=== PATIENT | female | born 1940 | race Hispanic/Latino ===

== ENCOUNTER 2019-03-21 14:45 | Observation (INO) | payer MEDICARE ==
[~2019-03-21] VITALS: Ht 144.8 cm; Wt 104.7 kg
[2019-03-21] MEDS: MELOXICAM 7.5 MG TAB PO SCH (09:00)
--- OUTSIDE RECORDS SUMMARY | 2019-03-21 14:47 | XMS REPORT | Clinical Summary ---
Author Author [facility] Organization [facility] Address Unknown Phone Unavailable Care Team Providers Care Dust Sampler Name Role Phone Aicha Benjamin PCP Allergies No Known Allergies Medications End Date Status Medication Sig Dispensed Refills Start Date Active meloxicam (MOBIC) 15 mg Take 1 tab 30 tablet 1 tabletIndications: Acute daily with 9 pain of right knee, Pain food for knee in both feet & feet pain Active triamcinolone (KENALOG) Apply to 30 g 0 0.5 % affected area 9 ointmentIndications: two times a Dermatitis day for 2 weeks 01/14/2020 Active lisinopril Take 1 tablet 90 tablet 1 (PRINIVIL,ZESTRIL) 10 mg (10 mg total) 9 tabletIndications: by mouth Essential hypertension daily. 02/28/2020 Active montelukast (SINGULAIR) Take 1 tablet 30 tablet 3 10 mg tabletIndications: (10 mg total) 9 Nasal congestion, Chronic by mouth cough nightly. Active fluticasone propionate 2 sprays (100 15.8 mL 0 (FLONASE) 50 mcg total) by 9 mcg/actuation nasal Each Nare sprayIndications: Nasal route daily. congestion, Chronic cough 02/28/2020 Active albuterol (PROAIR Inhale 2 18 g 0 HFA,PROVENTIL puffs 2 (two) 9 HFA,VENTOLIN HFA) 90 times a day mcg/actuation inhaler as needed for wheezing or shortness of breath. 01/14/2019 Discontinued lisinopril Take 1 tablet 60 tablet 5 (PRINIVIL,ZESTRIL) 10 mg (10 mg total) 6 tabletIndications: by mouth Essential hypertension daily. 04/11/2018 atorvastatin (LIPITOR) 10 Take 1 tablet 90 tablet 0 MG tabletIndications: (10 mg total) 7 Kidney function abnormal, by mouth Hypercholesteremia daily. 01/24/2019 amoxicillin-pot Take 1 tablet 20 tablet 0 clavulanate (AUGMENTIN) by mouth 2 9 875-125 mg per (two) times a tabletIndications: Acute day for 10 recurrent maxillary days. sinusitis 02/28/2019 Discontinued azelastine (ASTELIN) 137 1 spray into 30 mL 3 mcg (0.1 %) nasal each nostril 9 sprayIndications: Acute 2 (two) times recurrent maxillary a day. Use in sinusitis, Nasal each nostril congestion as directed 03/10/2019 nitrofurantoin, Take 1 14 capsule 0 macrocrystal-monohydrate, capsule (100 9 (MACROBID) 100 MG capsule mg total) by mouth 2 (two) times a day for 7 days. Active Problems Problem Noted Date Chronic cough 02/28/2019 Medicare annual wellness visit, subsequent 02/28/2019 Screening for breast cancer 02/28/2019 Screening for colon cancer 02/28/2019 Acute maxillary sinusitis 01/14/2019 Urinary frequency 01/14/2019 Nasal congestion 01/14/2019 CKD (chronic kidney disease), stage III 01/14/2019 Post-nasal drip 08/22/2016 Essential hypertension 08/22/2016 Memory change 07/11/2016 Encounters Care Team Description Date Type Specialty Aicha Benjamin DO 03/21/2019 Telephone Internal Medicine Aicha Benjamin DO 03/05/2019 Telephone Internal Medicine Aicha Benjamin DO 03/03/2019 Orders Only Family Medicine Aicha Benjamin DO Screening for colon cancer; Chronic cough; Medicare annual wellness visit, subsequent; Essential hypertension; Urinary frequency; CKD (chronic kidney disease), stage III (HCC) 02/28/2019 Lab Lab Aicha Benjamin DO Medicare annual wellness visit, subsequent (Primary Dx); Nasal congestion; Chronic cough; Screening for breast cancer; Screening for colon cancer; Essential hypertension; Urinary frequency; CKD (chronic kidney disease), stage III (HCC); Urinary incontinence, unspecified type 02/28/2019 Office Visit Family Medicine Aicha Benjamin DO 02/28/2019 Orders Only Family Medicine Markus Moore Screening for colon cancer (Primary Dx); Medicare annual wellness visit, subsequent 02/28/2019 Orders Only Family Medicine Aicha Benjamin DO Acute recurrent maxillary sinusitis; Essential hypertension 01/14/2019 Lab Lab Aicha Benjamin DO Acute recurrent maxillary sinusitis (Primary Dx); Essential hypertension; Urinary frequency; Nasal congestion; CKD (chronic kidney disease), stage III (HCC) 01/14/2019 Office Visit Family Medicine Beryl Martinez, RUBY 01/14/2019 Telephone Family Medicine Susana Espinoza MD Acute pain of right knee (Primary Dx); Pain in both feet; Dermatitis 12/12/2018 Office Visit Family Medicine after 03/20/2018 Immunizations Name Dates Previously Given Next Due Influenza Trivalent 06/13/2018, 07/14/2016 Zoster 06/13/2016 Family History Medical History Relation Name Comments Heart attack Father Diabetes Mother Relation Name Status Comments Father Mother Social History Date Tobacco Use Types Packs/Day Years Used Never Smoker Smokeless Tobacco: Never Used Tobacco Cessation: Counseling Given: No Alcohol Use Drinks/Week oz/Week Comments No Sex Assigned at Date Recorded Not on file Industry Job Start Date Occupation Not on file Not on file Not on file Travel End Travel History Travel Start No recent travel history available. Last Filed Vital Signs Time Taken Vital Sign Reading 02/28/2019 2:32 PM CDT Blood Pressure 142/74 02/28/2019 2:32 PM CDT Pulse 70 01/14/2019 1:17 PM CDT Temperature 36.5 C (97.7 F) - Respiratory Rate - 02/28/2019 2:32 PM CDT Oxygen Saturation 98% - Inhaled Oxygen - Concentration 02/28/2019 2:32 PM CDT Weight 102 kg (225 lb) 02/28/2019 2:32 PM CDT Height 144.8 cm (4' 9") 02/28/2019 2:32 PM CDT Body Mass Index 48.69 Plan of Treatment Care Team Description Date Type Specialty Aicha Benjamin DO [address] [address] [phone] 04/09/2019 Office Visit Family Medicine Aicha Benjamin DO [address] [facility] [address] [place], [place] [address] Lena Mercado MD [address] [facility] [address] [place] [address] 04/11/2019 Office Visit Urology Health Maintenance Due Date Last Done Comments COLONOSCOPY SCREENING 1992 SHINGLES VACCINES (#1) 1992 65+ PNEUMOCOCCAL VACCINE 12/12/2007 (1 of 2 - PCV13) INFLUENZA VACCINE 04/04/2019 06/13/2018, 07/14/2016, 05/14/2016 Procedures Comments Procedure Name Priority Date/Time Associated Diagnosis XR CHEST 2 VW Routine 02/28/2019 Chronic cough 4:37 PM CDT URINALYSIS, AUTOMATED Routine 02/28/2019 Medicare annual wellness WITH MICROSCOPY 3:55 PM CDT visit, subsequent Essential hypertension Urinary frequency CKD (chronic kidney disease), stage III (HCC) COMPREHENSIVE METABOLIC Routine 02/28/2019 Chronic cough PANEL 3:55 PM CDT Medicare annual wellness visit, subsequent Essential hypertension Urinary frequency CKD (chronic kidney disease), stage III (HCC) CBC WITH PLATELET AND Routine 02/28/2019 Chronic cough DIFFERENTIAL 3:55 PM CDT Medicare annual wellness visit, subsequent Essential hypertension Urinary frequency CKD (chronic kidney disease), stage III (HCC) URINE CULTURE Routine 02/28/2019 Medicare annual wellness 3:55 PM CDT visit, subsequent Essential hypertension Urinary frequency CKD (chronic kidney disease), stage III (HCC) URINALYSIS, AUTOMATED Routine 01/14/2019 Acute recurrent maxillary WITH MICROSCOPY 2:07 PM CDT sinusitis Essential hypertension LIPID PANEL Routine 01/14/2019 Acute recurrent maxillary 2:07 PM CDT sinusitis Essential hypertension COMPREHENSIVE METABOLIC Routine 01/14/2019 Acute recurrent maxillary PANEL 2:07 PM CDT sinusitis Essential hypertension CBC WITH PLATELET AND Routine 01/14/2019 Acute recurrent maxillary DIFFERENTIAL 2:07 PM CDT sinusitis Essential hypertension XR KNEE 4+ VW RIGHT Routine 12/12/2018 Acute pain of right knee 11:53 AM CDT after 03/20/2018 Results * XR Chest 2 Vw (02/28/2019 4:37 PM CDT) Specimen Narrative Performed At EXAMINATION:XR CHEST 2 VW [facility] CLINICAL HISTORY:R05 Cough, Chronic cough of 3 months COMPARISON:None IMPRESSION: Heart size is within the upper limits of normal.Pulmonary vessels are in the normal range.There is patchy atelectasis at the right lung base medially.Lung quiles are otherwise clear. [id number] Procedure Note Hm Interface, Radiology Results Incoming - 02/28/2019 4:47 PM CDT EXAMINATION: XR CHEST 2 VW CLINICAL HISTORY: R05 Cough, Chronic cough of 3 months COMPARISON: None IMPRESSION: Heart size is within the upper limits of normal. Pulmonary vessels are in the normal range. There is patchy atelectasis at the right lung base medially. Lung quiles are otherwise clear. [facility]-[id number] Performing Organization Address City/State/Zipcode Phone Number [facility] [address] [place] [address] * Urinalysis, automated with microscopy (02/28/2019 3:55 PM CDT) Only the most recent of 2 results within the time period is included. Color, UA YELLOW YELLOW [facility] [place] Appearance CLEAR CLEAR [facility] [place] Specific 1.014 1.001 - 1.035 [facility] gravity, urine [facility] [place] pH, urine 5.5 5.0 - 8.0 [facility] [place] Glucose, urine NEGATIVE NEGATIVE [facility] [place] Bilirubin, UA NEGATIVE NEGATIVE [facility] [place] Ketones, UA NEGATIVE NEGATIVE [facility] [place] Occult blood, NEGATIVE NEGATIVE [facility] [place] Protein, UA 1+ (A) NEGATIVE [facility] [place] Nitrite, UA NEGATIVE NEGATIVE [facility] [place] Leukocyte 2+ (A) NEGATIVE [facility] esterase, UA [facility] [place] WBC, UA > OR=60 (A) < OR=5 /HPF [facility] [place] RBC, UA NONE SEEN < OR=2 /HPF [facility] [place] Squamous NONE SEEN < OR=5 /HPF [facility] epithelial [facility]AGNOSTICS cells, UA [place] Bacteria, UA NONE SEEN NONE SEEN /HPF [facility] [place] Hyaline casts, NONE SEEN NONE SEEN /LPF [facility] UA [facility] [place] Specimen Urine Resulting Agency Comment Performing Organization Information: Site ID: [id number] Name: [facility] Address: [address] [place] [id number] Director: Stephanie Sellers Performing Organization Address City/State/Zipcode Phone Number [facility] [place] [address] [place] [phone] * CBC with platelet and differential (02/28/2019 3:55 PM CDT) Only the most recent of 2 results within the time period is included. WBC 9.0 3.8 - 10.8 [facility] Thousand/uL [facility] [place] RBC 4.30 3.80 - 5.10 [facility] Million/uL [facility] [place] HGB 11.5 (L) 11.7 - 15.5 g/dL [facility] HCT 36.1 35.0 - 45.0 % [facility] MCV 84.0 80.0 - 100.0 fL [facility] [place] MCH 26.7 (L) 27.0 - 33.0 pg [facility] [place] MCHC 31.9 (L) 32.0 - 36.0 g/dL [facility] [place] RDW 14.0 11.0 - 15.0 % [facility] [place] Platelet count 319 140 - 400 [facility] Thousand/uL [facility] [place] MPV 11.8 7.5 - 12.5 fL [facility] [place] Neutrophils, 5,553 1,500 - 7,800 [facility] absolute cells/uL [facility] [place] Lymphocytes, 2,538 850 - 3,900 cells/uL [facility] absolute [facility] [place] Monocytes, 648 200 - 950 cells/uL [facility] [place] Eosinophils, 198 15 - 500 cells/uL [facility] [place] Basophils, 63 0 - 200 cells/uL [facility] [place] Neutrophils 61.7 % [facility] [employer] [place] Lymphocytes 28.2 % [facility] [place] Monocytes 7.2 % [facility] [place] Eosinophils 2.2 % [facility] [employer] [place] Basophils + RC 0.7 % [facility] [employer] [place] Specimen Blood Resulting Agency Comment Performing Organization Information: Site ID: [id number] Name: [facility] Address: [address] [place] [id number] Director: Stephanie Sellers Performing Organization Address City/State/Zipcode Phone Number [facility] [place] [address] [place] [phone] * Urine culture (02/28/2019 3:55 PM CDT) Urine culture SEE NOTE (A) [facility] Comment: DIAGNOSTICS CULTURE, URINE, ROUTINE [place] MICRO NUMBER:[id number] TEST STATUS: FINAL SPECIMEN SOURCE: URINE SPECIMEN QUALITY:ADEQUATE RESULT: Greater than 100,000 CFU/mL of Escherichia coli COMMENT: Additional organism(s) less than 10,000 CFU/mL isolated. These organisms, commonly found on external and internal genitalia, are considered colonizers. No further testing performed. E.coli -------- -------- INT EKTA AMOX/CLAVULANATE S 4 AMPICILLIN R >=32 AMP/SULBACTAM I 16 CEFAZOLIN NR<=4 2 CEFEPIME S <=1 CEFTRIAXONE S <=1 CIPROFLOXACIN S <=0.25 GENTAMICIN S <=1 IMIPENEM S <=0.25 LEVOFLOXACIN S <=0.12 NITROFURANTOIN S <=16 PIP/TAZOBACTAM S <=4 TOBRAMYCIN S <=1 TRIMETHOPRIM/SULFA S <=20 S=SusceptibleI=Intermediat eR=Resistant*=Not Tested NR=Not ReportedNN=See Therapy Comments THERAPY COMMENTS Note 1: For infections other than uncomplicated UTI caused by E. coli, K. pneumoniae or P. mirabilis: Cefazolin is resistant if EKTA > or=8 mcg/mL. (Distinguishing susceptible versus intermediate for isolates with EKTA < or=4 mcg/mL requires additional testing.) Note 2: For uncomplicated UTI caused by E. coli, K. pneumoniae or P. mirabilis: Cefazolin is susceptible if EKTA <32 mcg/mL and predicts susceptible to the oral agents cefaclor, cefdinir, cefpodoxime, cefprozil, cefuroxime, cephalexin and loracarbef. Specimen Urine Resulting Agency Comment Performing Organization Information: Site ID: [id number] Name: [facility] Address: [address] [place] [id number] Director: Stephanie Sellers Performing Organization Address City/State/Zipcode Phone Number [facility] [employer] [address] [address] * Comprehensive metabolic panel (02/28/2019 3:55 PM CDT) Only the most recent of 2 results within the time period is included. [facility] Glucose 106 (H) 65 - 99 mg/dL [facility] Comment: DIAGNOSTICS Fasting [place] reference interval For someone without known diabetes, a glucose value between 100 and 125 mg/dL is consistent with prediabetes and should be confirmed with a follow-up test. BUN, whole 27 (H) 7 - 25 mg/dL [facility] blood [facility] [place] Creatinine 1.24 (H) 0.60 - 0.93 mg/dL [facility] Comment: DIAGNOSTICS For patients >49 years of age, [place] the reference limit for Creatinine is approximately 13% higher for people identified as -Moroccan. EGFR Non-Afr. 42 (L) > OR=60 [facility] [place] mL/min/1.73m2 [facility] [place] EGFR 49 (L) > OR=60 [facility] [place] mL/min/1.73m2 [facility] [place] BUN/creatinine 22 6 - 22 (calc) [facility] ratio [facility] [place] Sodium 140 135 - 146 mmol/L [facility] [place] Potassium 5.1 3.5 - 5.3 mmol/L [facility] [place] Chloride 107 98 - 110 mmol/L [facility] [place] CO2 25 20 - 32 mmol/L [facility] [place] Calcium 9.4 8.6 - 10.4 mg/dL [facility] [place] Protein 7.3 6.1 - 8.1 g/dL [facility] [place] Albumin, S 3.8 3.6 - 5.1 g/dL [facility] [place] Globulin, total 3.5 1.9 - 3.7 g/dL [facility] (calc) [facility] [place] Albumin/globuli 1.1 1.0 - 2.5 (calc) [facility] n ratio [facility] [place] Total bilirubin 0.4 0.2 - 1.2 mg/dL [facility] [place] Alkaline 84 33 - 130 U/L [facility] phosphatase [facility] [place] AST 14 10 - 35 U/L [facility] [place] ALT 14 6 - 29 U/L [facility] [place] Specimen Blood Resulting Agency Comment Performing Organization Information: Site ID: [id number] Name: [facility] Address: [address] [place] [phone] Director: Stephanie Sellers Performing Organization Address City/State/Zipcode Phone Number [facility] [employer] [address] [phone] * Lipid panel (01/14/2019 2:07 PM CDT) [facility] Cholesterol, 181 <200 mg/dL [facility] total [facility] [place] HDL cholesterol 61 >50 mg/dL [facility] [place] Triglycerides 110 <150 mg/dL [facility] [place] LDL cholesterol 99 mg/dL (calc) [facility] calculated Comment: DIAGNOSTICS Reference range: <100 [place] Desirable range <100 mg/dL for primary prevention; <70 mg/dL for patients with CHD or diabetic patients with > or=2 CHD risk factors. LDL-C is now calculated using the Jackie calculation, which is a validated novel method providing better accuracy than the Friedewald equation in the estimation of LDL-C. Huey SIMENTAL et al. NICK. 2013;310(19): 6731-2117 (http://education.Show de Ingressos.Blokify/faq/XIG906) Cholesterol/HDL 3.0 <5.0 (calc) [facility] ratio [facility] [place] Non-HDL 120 <130 mg/dL (calc) [facility] cholesterol Comment: DIAGNOSTICS For patients with diabetes [place] plus 1 major ASCVD risk factor, treating to a non-HDL-C goal of <100 mg/dL (LDL-C of <70 mg/dL) is considered a therapeutic option. Specimen Blood Resulting Agency Comment Performing Organization Information: Site ID: [id number] Name: [facility] Address: [address] [place] [phone] Director: Stephanie Sellers Performing Organization Address City/State/Zipcode [place] [address] * XR Knee 4+ Vw Right (12/12/2018 11:53 AM CDT) Specimen Narrative Performed At XR KNEE 4VW RIGHT [facility] CLINICAL INDICATION:M25.561 Pain in right knee, Knee paininitial exam COMPARISON:None. IMPRESSION: Bones are demineralized but no fracture is identified. There is very mild medial joint space narrowing with subchondral reactive sclerosis. No significant arthritic findings are identified. There is no joint effusion. Periarticular soft tissues are unremarkable. There is probable artifact/overlying the mid thigh. *[id number] Procedure Note Hm Interface, Radiology Results Incoming - 12/12/2018 12:04 PM CDT XR KNEE 4 VW RIGHT CLINICAL INDICATION: M25.561 Pain in right knee, Knee pain initial exam COMPARISON: None. IMPRESSION: Bones are demineralized but no fracture is identified. There is very mild medial joint space narrowing with subchondral reactive sclerosis. No significant arthritic findings are identified. There is no joint effusion. Periarticular soft tissues are unremarkable. There is probable artifact/overlying the mid thigh. *[id number] Performing Organization Address City/State/Zipcode Phone Number [facility] [address] [place] [address] after 03/20/2018 Insurance Type Payer Benefit Subscriber ID Effective Phone Address Plan / Dates Group [facility] MEDICARE AARP xxxxxxxxx [id number] MEDICARE resent COMPLETE [facility] Advance Directives Patient has advance care planning documents on file. For more information, margi baig contact: Fredi Moeller [address] [place] [address]
[2019-03-21] MEDS ORDERED: IPRATROPIUM BROMIDE 0.02% 2.5 ML NEB NEB STA (15:06)
[2019-03-21] MEDS ORDERED: ALBUTEROL SULF 0.083% NEB SOLN 3 ML NEB NEB STA (15:06)
--- NOTE | 2019-03-21 15:36 | Diagnostic Imaging Report ---
EXAMINATION: CHEST 2 VIEWS INDICATION: Cough COMPARISON: None FINDINGS: TUBES and LINES: None. LUNGS: The lungs are moderately inflated. No focal consolidation or pulmonary edema. PLEURA: No pleural effusion or pneumothorax. HEART AND MEDIASTINUM: The cardiomediastinal silhouette is normal in size and contour. BONES AND SOFT TISSUES: No acute fracture or dislocation. UPPER ABDOMEN: No free air under the diaphragm. Surgical clips project over the right axilla. IMPRESSION: No focal pneumonia or pulmonary edema. Signed by: Judith Mcgowan MD on 03/21/2019 3:32 PM
[2019-03-21 16:12] LABS: BASOPHILS # (AUTO) 0.1 (0.0-0.1); BASOPHILS % 0.5 % (0.0-1.0); EOSINOPHILS # (AUTO) 0.4 (0.0-0.4); EOSINOPHILS % 3.2 % (0.0-6.0); HEMATOCRIT 37.3 % (34.2-44.1); HEMOGLOBIN 11.8 g/dL (12.0-16.0); LYMPHOCYTES # (AUTO) 2.1 (1.0-3.2); LYMPHOCYTES % 19.7 % (18.0-39.1); MEAN CORPUSCULAR HEMOGLOBIN 27.4 pg (28-32); MEAN CORPUSCULAR HGB CONC 31.6 g/dL (31-35); MEAN CORPUSCULAR VOLUME 86.7 fL (81-99); MONOCYTES # (AUTO) 0.9 (0.2-0.8); MONOCYTES % 8.5 % (4.4-11.3); NEUTROPHILS # (AUTO) 7.4 (2.1-6.9); NEUTROPHILS % 67.7 % (38.7-80.0); PLATELET COUNT 322 x10e3/uL (140-360)
[2019-03-21 16:33] LABS: ALBUMIN 3.3 g/dL (3.5-5.0); ALBUMIN/GLOBULIN RATIO 0.7 (0.8-2.0); ANION GAP 15.1 mmol/L (8-16); CALCIUM 9.8 mg/dL (8.4-10.2); CREATININE, SERUM 1.38 mg/dL (0.57-1.11); POTASSIUM 4.1 mmol/L (3.5-5.1)
[2019-03-21 16:39] LABS: CREATINE KINASE MB 1.6 ng/mL (0-5.0)
[2019-03-21] MEDS ORDERED: ALBUTEROL/IPRATROPIUM 3 ML NEB NEB PRN (17:30)
[2019-03-21] MEDS ORDERED: IBUPROFEN 200 MG TAB PO PRN (17:30)
[2019-03-21] MEDS ORDERED: DIPHENHYDRAMINE HCL INJ 50 MG/ML VIAL IV PRN (17:30)
[2019-03-21] MEDS ORDERED: ACETAMINOPHEN 325 MG TAB PO PRN (17:30)
[2019-03-21] MEDS ORDERED: CLONIDINE HCL 0.1 MG TAB PO PRN (17:30)
[2019-03-21] MEDS ORDERED: HYDRALAZINE HCL 20 MG/ML VIAL IV PRN (17:30)
[2019-03-21] MEDS ORDERED: IBUPROFEN 400 MG TAB PO PRN (17:45)
--- OUTSIDE RECORDS SUMMARY | 2019-03-21 17:51 | XMS REPORT | Clinical Summary ---
Author Author [facility] Organization [place] [facility] Address Unknown Phone Unavailable Care Team Providers Care Drugless Physician Name Role Phone Aicha Benjamin PCP Allergies [...] Description Date Type Specialty Aicha Benjamin DO [address] [address] [phone] 04/09/2019 Office Visit Family Medicine Aicha Benjamin DO [address] [facility] [address] [place], [place] [address] Lena Mercado MD [address] [facility] [address] [place] [address] 04/11/2019 Office Visit Urology Health [...] lung base medially.Lung quiles are otherwise clear. [id number] Procedure Note Hm Interface, Radiology Results Incoming - 02/28/2019 4:47 PM CDT EXAMINATION: XR CHEST 2 VW CLINICAL HISTORY: R05 Cough, Chronic cough of 3 months COMPARISON: None IMPRESSION: Heart size is within the upper limits of normal. Pulmonary vessels are in the normal range. There is patchy atelectasis at the right lung base medially. Lung quiles are otherwise clear. [facility]-[id number] Performing Organization Address City/State/Zipcode Phone Number [facility] [address] [place] [address] * Urinalysis, automated with microscopy (02/28/2019 3:55 PM CDT) Only the most recent of 2 results within the time period is included. Color, UA YELLOW YELLOW [facility] [place] Appearance CLEAR CLEAR [facility] [place] Specific 1.014 1.001 - 1.035 [facility] gravity, urine [facility] [place] pH, urine 5.5 5.0 - 8.0 [facility] [place] Glucose, urine NEGATIVE NEGATIVE [facility] [place] Bilirubin, UA NEGATIVE NEGATIVE [facility] [place] Ketones, UA NEGATIVE NEGATIVE [facility] [place] Occult blood, NEGATIVE NEGATIVE [facility] [place] Protein, UA 1+ (A) NEGATIVE [facility] [place] Nitrite, UA NEGATIVE NEGATIVE [facility] [place] Leukocyte 2+ (A) NEGATIVE [facility] esterase, UA [facility] [place] WBC, UA > OR=60 (A) < OR=5 /HPF [facility] [place] RBC, UA NONE SEEN < OR=2 /HPF [facility] [place] Squamous NONE SEEN < OR=5 /HPF [facility] epithelial [facility]AGNOSTICS cells, UA [place] Bacteria, UA NONE SEEN NONE SEEN /HPF [facility] [place] Hyaline casts, NONE SEEN NONE SEEN /LPF [facility] UA [facility] [place] Specimen Urine Resulting Agency Comment Performing Organization Information: Site ID: [id number] Name: [facility] Address: [address] [place] [id number] Director: Stephanie Sellers Performing Organization Address City/State/Zipcode Phone Number [facility] [place] [address] [place] [phone] * CBC with platelet and differential (02/28/2019 3:55 PM CDT) Only the most recent of 2 results within the time period is included. WBC 9.0 3.8 - 10.8 [facility] Thousand/uL [facility] [place] RBC 4.30 3.80 - 5.10 [facility] Million/uL [facility] [place] HGB 11.5 (L) 11.7 - 15.5 g/dL [facility] HCT 36.1 35.0 - 45.0 % [facility] MCV 84.0 80.0 - 100.0 fL [facility] [place] MCH 26.7 (L) 27.0 - 33.0 pg [facility] [place] MCHC 31.9 (L) 32.0 - 36.0 g/dL [facility] [place] RDW 14.0 11.0 - 15.0 % [facility] [place] Platelet count 319 140 - 400 [facility] Thousand/uL [facility] [place] MPV 11.8 7.5 - 12.5 fL [facility] [place] Neutrophils, 5,553 1,500 - 7,800 [facility] absolute cells/uL [facility] [place] Lymphocytes, 2,538 850 - 3,900 cells/uL [facility] absolute [facility] [place] Monocytes, 648 200 - 950 cells/uL [facility] [place] Eosinophils, 198 15 - 500 cells/uL [facility] [place] Basophils, 63 0 - 200 cells/uL [facility] [place] Neutrophils 61.7 % [facility] [place] [facility] [employer] [facility] [facility] [place] Lymphocytes 28.2 % [facility] [place] Monocytes 7.2 % [facility] [place] Eosinophils 2.2 % [facility] [place] [facility] [employer] [place] Basophils + RC 0.7 % [facility] [place] [facility] [facility] [place] Specimen Blood Resulting Agency Comment Performing Organization Information: Site ID: [id number] Name: [facility] Address: [address] [place] [phone] Director: Stephanie Sellers Performing Organization Address City/State/Zipcode Phone Number [facility] [place] [address] [place] [phone] * Urine culture (02/28/2019 3:55 PM CDT) Urine culture SEE NOTE (A) [facility] Comment: DIAGNOSTICS CULTURE, URINE, ROUTINE [place] MICRO NUMBER:[id number] TEST STATUS: FINAL SPECIMEN SOURCE: URINE SPECIMEN [...] Performing Organization Information: Site ID: [id number] Name: [facility] Address: [address] [place] [phone] Director: Stephanie Sellers Performing Organization Address City/State/Zipcode Phone Number [facility] [address] [address] * Comprehensive metabolic panel (02/28/2019 3:55 PM CDT) Only the most recent of 2 results within the time period is included. [facility] Glucose 106 (H) 65 - 99 mg/dL [facility] Comment: DIAGNOSTICS Fasting [place] reference interval For someone without known diabetes, a glucose value between 100 and 125 mg/dL is consistent with prediabetes and should be confirmed with a follow-up test. BUN, whole 27 (H) 7 - 25 mg/dL [facility] blood [facility] [place] Creatinine 1.24 (H) 0.60 - 0.93 mg/dL [facility] Comment: DIAGNOSTICS For patients >49 years of age, [place] the reference limit for Creatinine is approximately 13% higher for people identified as -French. EGFR Non-Afr. 42 (L) > OR=60 [facility] French mL/min/1.73m2 [facility] [place] EGFR 49 (L) > OR=60 [facility] French mL/min/1.73m2 [facility] [place] BUN/creatinine 22 6 - 22 (calc) [facility] ratio [facility] [place] Sodium 140 135 - 146 mmol/L [facility] [place] Potassium 5.1 3.5 - 5.3 mmol/L [facility] [place] Chloride 107 98 - 110 mmol/L [facility] [place] CO2 25 20 - 32 mmol/L [facility] [place] Calcium 9.4 8.6 - 10.4 mg/dL [facility] [place] Protein 7.3 6.1 - 8.1 g/dL [facility] [place] Albumin, S 3.8 3.6 - 5.1 g/dL [facility] [place] Globulin, total 3.5 1.9 - 3.7 g/dL [facility] (calc) [facility] [place] Albumin/globuli 1.1 1.0 - 2.5 (calc) [facility] n ratio [facility] [place] Total bilirubin 0.4 0.2 - 1.2 mg/dL [facility] [place] Alkaline 84 33 - 130 U/L [facility] phosphatase [facility] [place] AST 14 10 - 35 U/L [facility] [place] ALT 14 6 - 29 U/L [facility] [place] Specimen Blood Resulting Agency Comment Performing Organization Information: Site ID: [id number] Name: [facility] Address: [address] [place] [phone] Director: Stephanie Sellers Performing Organization Address City/State/Zipcode Phone Number [facility] [address] [address] * Lipid panel (01/14/2019 2:07 PM CDT) [facility] Cholesterol, 181 <200 mg/dL [facility] total [facility] [place] HDL cholesterol 61 >50 mg/dL [facility] [place] Triglycerides 110 <150 mg/dL [facility] [place] LDL cholesterol 99 mg/dL (calc) [facility] calculated Comment: DIAGNOSTICS Reference range: <100 [place] Desirable range <100 mg/dL for primary prevention; <70 mg/dL for patients with CHD or diabetic patients with > or=2 CHD risk factors. LDL-C is now calculated using the Jackie calculation, which is a validated novel method providing better accuracy than the Friedewald equation in the estimation of LDL-C. Huey SIMENTAL et al. NICK. 2013;310(19): 9613-5985 (http://education.[facility].[employer]/faq/GWU792) Cholesterol/HDL 3.0 <5.0 (calc) [facility] ratio [facility] [place] Non-HDL 120 <130 mg/dL (calc) [facility] cholesterol Comment: DIAGNOSTICS For patients with diabetes [place] plus 1 major ASCVD risk factor, treating to a non-HDL-C goal of <100 mg/dL (LDL-C of <70 mg/dL) is considered a therapeutic option. Specimen Blood Resulting Agency Comment Performing Organization Information: Site ID: [id number] Name: [facility] Address: [address] [place] [phone] Director: Stephanie Sellers Performing Organization Address City/State/[place] [address] * XR Knee 4+ Vw Right (12/12/2018 [...] There is probable artifact/overlying the mid thigh. *[id number] Procedure Note Hm Interface, Radiology Results Incoming [...] There is probable artifact/overlying the mid thigh. *[id number] Performing Organization Address City/State/Zipcode Phone Number [facility] [address] [place] [address] after 03/20/2018 Insurance Type Payer Benefit Subscriber ID Effective Phone Address Plan / Dates Group [facility] MEDICARE AARP xxxxxxxxx [id number] MEDICARE resent COMPLETE [facility] Advance Directives Patient has advance care planning documents on file. For more information, margi baig contact: Fredi Moeller [address] [place] [address]
--- OUTSIDE RECORDS SUMMARY | 2019-03-21 17:51 | XMS REPORT ---
Author Author [facility] Address Unknown Phone Unavailable Care Team Providers Care Chef'S Assistant Name Role Phone Chris ROBINS Unavailable Unavailable Problems This patient has no known problems. Allergies, Adverse Reactions, Alerts This patient has no known allergies or adverse reactions. Medications This patient has no known medications. Results Test Description Test Time Test Comments Text Results Atomic Results Result Comments CHEST 2 VIEWS 2019-03-21 15:31:00 [place] [address] Patient Name: NADEEN ESCOBEDO MR #: [id number] : 1940 Age/Sex: 78/F Req #: [id number] Adm Physician: Ordered by: JAMIE ROBINS MD Report #: [id number] Location: ER Room/Bed: Procedure: [id number] DX/CHEST 2 VIEWS Exam Date: 03/21/19 Exam Time: 1516 REPORT STATUS: Signed EXAMINATION: CHEST 2 VIEWS INDICATION: Cough CO MPARISON: None FINDINGS: TUBES and LINES: None. LUNGS: The lungs are moderately inflated. No focal consolidation or pulmonary edema. PLEURA: No pleural effusion or pneumothorax. HEART AND MEDIASTINUM: The cardiomediastinal silhouette is normal in size and contour. BONES AND SOFT TISSUES: No acute fracture or dislocation. UPPER ABDOMEN: No free air under the diaphragm. Surgical clips project over the right axilla. IMPRESSION: No focal pneumonia or pulmonary edema. Signed by: Lizz Mcgowan MD on 03/21/2019 3:32 PM Dictated By: LIZZ MCGOWAN MD 1532 Transcribed By: MARVA on 03/21/19 1532 COPY TO: JAMIE ROBINS MD
[2019-03-21] MEDS: ASPIRIN 81 MG ENTERIC COATED PO SCH (18:09)
[2019-03-21] MEDS: FAMOTIDINE 20 MG/2 ML VIAL IV SCH (18:11)
[2019-03-21] MEDS ORDERED: VENTOLIN HFA18 GM INH (18:15)
[2019-03-21] MEDS ORDERED: MELOXICAM15 MG PO (18:15)
[2019-03-21] MEDS ORDERED: LISINOPRIL10 MG PO (18:15)
[2019-03-21 20:25] VITALS: BP 132/60
[2019-03-21] MEDS ORDERED: ZOLPIDEM TARTRATE 5 MG TAB PO PRN (21:00)
--- NOTE | 2019-03-21 21:15 | NUR ---
PATIENT RECEIVED AOX3, NO DISTRESS NOTED. COUGH IS PRESENT UPON ADMISSION AND PATIENT VOICED COMPLAINTS OF HEADACHE. FAMILY IS AT BED SIDE, BED LOCKED IN LOWEST POSITION, CALL LIGHT WITHIN EASY REACH, WILL CONTINUE TO MONITOR.
[2019-03-21] MEDS ORDERED: GUAIFENESIN/CODEINE 10 ML CUP PO PRN (21:30)
[2019-03-21] MEDS: GUAIFENESIN/CODEINE 10 ML CUP PO PRN (22:05)
--- NOTE | 2019-03-21 22:12 | NUR ---
PATIENT RECEIVED MEDICATION FOR COUGH AND HEADACHE, WILL CONTINUE TO MONITOR.
[2019-03-21 22:21] VITALS: BP 132/60
[2019-03-22] VITALS (8 sets, daily range): BP systolic 118–144; BP diastolic 56–66
[2019-03-22 02:22] LABS: CREATINE KINASE MB 1.4 ng/mL (0-5.0)
--- NOTE | 2019-03-22 05:17 | NUR ---
PAGED DR. SUMNER IN REGARDS TO A CONSULT FOR THE PATIENT REGARDING ABNORMAL EKG.
[2019-03-22 05:48] LABS: CHOL/HDL RATIO 3.5 (3.0-3.6)
--- NOTE | 2019-03-22 07:00 | NUR ---
BEDSIDE SHIFT REPORT FROM NIGHT RN. PT DENIES FURTHER NEEDS AT THIS TIME.
[2019-03-22] MEDS ORDERED: LISINOPRIL 10 MG TAB PO SCH (09:00)
[2019-03-22] MEDS: FAMOTIDINE 20 MG/2 ML VIAL IV SCH ×2 (09:08→17:29)
[2019-03-22] MEDS: MELOXICAM 7.5 MG TAB PO SCH (09:08)
[2019-03-22] MEDS: ASPIRIN 81 MG ENTERIC COATED PO SCH (09:08)
[2019-03-22] MEDS: GUAIFENESIN/CODEINE 10 ML CUP PO PRN ×2 (09:12→21:10)
[2019-03-22 09:31] LABS: CREATINE KINASE MB 1.3 ng/mL (0-5.0)
[2019-03-22 10:40] LABS: ANION GAP 16.2 mmol/L (8-16); CALCIUM 9.3 mg/dL (8.4-10.2); CREATININE, SERUM 1.18 mg/dL (0.57-1.11); POTASSIUM 4.2 mmol/L (3.5-5.1)
[2019-03-22] MEDS ORDERED: BENZONATATE 100 MG CAP PO PRN (11:30)
[2019-03-22 11:43] LABS: BASOPHILS # (AUTO) 0.1 (0.0-0.1); BASOPHILS % 0.7 % (0.0-1.0); EOSINOPHILS # (AUTO) 0.7 (0.0-0.4); EOSINOPHILS % 7.9 % (0.0-6.0); HEMATOCRIT 35.7 % (34.2-44.1); HEMOGLOBIN 10.8 g/dL (12.0-16.0); LYMPHOCYTES # (AUTO) 2.1 (1.0-3.2); LYMPHOCYTES % 25.9 % (18.0-39.1); MEAN CORPUSCULAR HEMOGLOBIN 27.2 pg (28-32); MEAN CORPUSCULAR HGB CONC 30.3 g/dL (31-35); MEAN CORPUSCULAR VOLUME 89.9 fL (81-99); MONOCYTES # (AUTO) 0.9 (0.2-0.8); MONOCYTES % 11.2 % (4.4-11.3); NEUTROPHILS # (AUTO) 4.5 (2.1-6.9); NEUTROPHILS % 54.1 % (38.7-80.0); PLATELET COUNT 265 x10e3/uL (140-360); RED BLOOD COUNT 3.97 x10e6/uL (3.6-5.1); RED CELL DISTRIBUTION WIDTH 15.3 % (11.7-14.4)
[2019-03-22] MEDS: CEFTRIAXONE SOD 1 GM/NS 50 ML 50 ML IV SCH (13:01)
--- NOTE | 2019-03-22 13:51 | Diagnostic Imaging Report ---
CT MAXIO FAC/PARANAS WO HISTORY: Cough, congestion COMPARISON: None. TECHNIQUE: Axial CT images through the face were obtained without contrast. Coronal/sagittal reformations were created. One or more of the following dose reduction techniques were used: Automated exposure control, adjustment of the mA and/or kV according to patient size, and/or utilization of iterative reconstruction technique. DISCUSSION: No acute fracture is seen. Periapical lucency is seen at the left maxillary first premolar. There are mild degenerative changes throughout the spine. The orbits are intact. Intraorbital contents are grossly unremarkable. The paranasal sinuses , major drainage pathways, and nasal cavities are are clear. Mild periventricular white matter hypodensities are likely chronic microvascular ischemic changes. Bilateral palatine tonsilloliths are present. Otherwise, the visualized soft tissues and intracranial compartment are grossly unremarkable. IMPRESSION: 1. The paranasal sinuses , major drainage pathways, and nasal cavities are are clear. 2. Bilateral palatine tonsilloliths. Otherwise, the visualized upper aerodigestive tract is unremarkable. Signed by: Dr. Omega Freeman M.D. on 03/22/2019 1:48 PM
--- NOTE | 2019-03-22 14:24 | Diagnostic Imaging Report ---
CT of the chest, without contrast, 03/22/2019. History: Congestion. Comparison: Chest x-ray 03/21/2019. Technique: Multidetector CT scanning of the chest was performed from the level of the apices to the upper abdomen without contrast. Coronal and sagittal multiplanar reformations were obtained. RADIATION DOSE: Total DLP: 521 mGy*cm Dose modulation, iterative reconstruction, and/or weight based adjustment of the mA/kV was utilized to reduce the radiation dose to as low as reasonably achievable. Discussion: Evaluation is limited without IV contrast. Chest: The heart is mildly enlarged. The main pulmonary artery is mildly dilated measuring 3.4 cm in diameter. The thoracic aorta is within normal limits for size. The thyroid is unremarkable. Scattered subcentimeter mediastinal nodes are present. Linear opacities are present in the right middle lobe, lingula, and both lower lobes. Subcentimeter thin-walled cysts are present in both lung bases. A 7 mm noncalcified nodule is present in the posterior aspect of the left lower lobe. There is no evidence of consolidation or pleural effusion. Limited evaluation of the upper abdomen shows normal adrenal glands. Bones and soft tissues: No acute abnormality. IMPRESSION: 1. Mild cardiomegaly and pulmonary artery enlargement without evidence of pulmonary edema. 2. Bilateral subsegmental atelectasis and small bilateral thin-walled cysts. 3. 7 mm noncalcified left lower lobe pulmonary nodule. Recommend follow-up CT at 6-12 months, then at 18-24 months. Signed by: Alfie Hunt on 03/22/2019 2:21 PM
--- NOTE | 2019-03-22 14:32 | Consultation ---
DATE OF CONSULTATION: Cardiology Consultation The patient admitted through the emergency room last night. I was called for Cardiology consult this morning. The patient came in with some cough, some atypical chest pain. The patient found to have left bundle-branch block. The patient has history of hypertension. The patient takes lisinopril. No history of myocardial infarction. The patient never investigated by medication nurse for her heart problems. The patient does not smoke. The patient moderately physically active. He has hypertension. No history of diabetes mellitus. The patient lives in [place]. PHYSICAL EXAMINATION: GENERAL: The patient conscious, alert, oriented. HEART: Shows short systolic murmur in the aortic area. LUNGS: Clear. Few rales and rhonchi present, but no bronchial breathing. ABDOMEN: Soft. EXTREMITIES: No pedal edema. Two sets of cardiac enzymes are normal. At this time, her predominant problem is hypertension and left bundle-branch block. We will do an echocardiogram and possible stress test. I do not think patient having an OR at this time. If both the tests are normal, we will probably send her home tomorrow. At this time, I am going to stop lisinopril once her cough improves. IMPRESSION: 1. Atypical chest pain. 2. Hypertension. 3. Left bundle-branch block. 4. Obesity. MD NADIRA Davis/MYA /[id number] MTDD
--- NOTE | 2019-03-22 14:37 | History and Physical ---
CHIEF COMPLAINT: Productive cough ongoing for several months, abnormal EKG. HISTORY OF PRESENT ILLNESS: This is a 78-year-old female with past medical history of hypotension, morbid obesity, comes into the ED with complaints of productive cough ongoing for the last 3 months. The patient reports that she will have these coughing fits where it would not come way. She did not see her primary care physician in relation to this issue. She reports having similar findings about a year ago that resolved spontaneously on its own. She did take some inhalers at that time, it also helped with the cough. She denies any fever at home. Does endorse some postnasal drip as well. Denies any chest pain, palpitation, lightheadedness with dizziness. On arrival to the ED, the patient had an EKG that was abnormal, found to have left bundle branch block and is the reason for admission. The patient denies any chest pain or any palpitations. She does not see a car hostler as an outpatient. She was seen and evaluated at bedside on the medical floor, currently she is doing well. Vital signs were stable when I evaluated her. REVIEW OF SYSTEMS: Pertinent positives: Productive cough, postnasal drip. Pertinent negative: Denies any chest pain, palpitation, nausea, vomiting, diarrhea, dysuria, hematuria, frequency, urgency, lightheadedness, dizziness, abdominal pain, headaches, shortness of breath, or any fever. The rest of 14-point review of systems have been reviewed with the patient and are negative. ALLERGIES: NO KNOWN DRUG ALLERGIES. HOME MEDICATIONS: Lisinopril 10 mg daily, meloxicam 15 mg daily p.r.n. PAST MEDICAL HISTORY: Hypertension, chronic cough. PAST SURGICAL HISTORY: Reports none. FAMILY HISTORY: Hypertension, diabetes. SOCIAL HISTORY: No drugs or alcohol. Does not smoke. Good social support. PHYSICAL EXAMINATION: VITAL SIGNS: Temperature 96.4, pulse 64, respiratory rate is 18, blood pressure 142/63, pulse ox 95% on room air. GENERAL: Not in acute distress. Alert and oriented x3. Cooperative on examination. HEENT: Head is normocephalic and atraumatic. Eyes; pupils are equal, round, and reactive to light bilaterally. Extraocular movements are intact bilaterally. Throat, no evidence of any erythema or exudates in the posterior pharynx. Has poor dentition. NECK: Supple. Good range of motion. PULMONARY: Clear to auscultation bilaterally. No wheezing, no rales, no rhonchi, no crackles appreciated. CARDIOVASCULAR: Positive S1 and S2. No murmurs, rubs, or gallops appreciated. ABDOMEN: Soft, nondistended, and nontender to palpation. Bowel sounds present. MUSCULOSKELETAL: Strength is 5/5 throughout. No evidence of any muscle deficits on examination. No weakness appreciated. NEUROLOGICAL: Cranial nerves II through XII grossly intact. No evidence of neurological deficits on exam. SKIN: Intact. Warm to touch. Good cap refill. PSYCHIATRIC: Normal affect and mood. EXTREMITIES: No edema. Good range of motion throughout. LABORATORY DATA: Lab findings show white count was found to be 10.8, hemoglobin 9.8, hematocrit 37, platelets of 322. Coagulation; D-dimer slightly elevated at 0.7. The patient has no symptoms. Chemistry; sodium 138, potassium 4.2, chloride 109, bicarb 17, anion gap is 16, BUN is 20, creatinine is 1.1, glucose is 130, calcium is 9.3, total bilirubin is 0.5, AST is 20, ALT is 18. Troponins are negative. BNP 58, albumin 3.3, LDL 98. MICROBIOLOGY: None. IMAGING STUDIES: Chest x-ray, no focal pneumonia or pulmonary edema. IMPRESSION: 1. Cough, congestion with postnasal drip, concerning for possible sinusitis. 2. Abnormal EKG with left bundle branch block. 3. Hypertension. 4. Morbid obesity. PLAN: At this time cardiac enzymes were found to be negative. EKG showed left bundle branch block. Cardiology was consulted. She is scheduled for cardiac stress test later today. In relation to her cough and congestion concerning for possible sinusitis, I will go ahead and consult to evaluate and treat. We will go ahead and get a CT of the facial sinuses as well. Put her on some Flonase, allergy medications. She is already on IV antibiotics. Resume same antihypertensive medications. Put her on Lovenox for DVT prophylaxis. Encourage ambulation. Await final recommendations by Cardiology and ENT. We will also order a CTA of the chest, CT of the sinuses as well. Antonio Graf MD JSAnna/MODL /[id number]
[2019-03-22] MEDS: FLUTICASONE PROPIONATE NASAL SPRAY NS SCH (14:49)
--- NOTE | 2019-03-22 16:58 | NUR ---
DISCUSSED PT IS ROUNDS, HAD ORDERS FOR TREADMILL STRESS TEST UNABLE TO COMPLETE, PT SCHEDULED NOW FOR RESTING STRESS TEST, PROJECTED DISCHARGE IS SET FOR 03/23/2019
[2019-03-22] MEDS ORDERED: ENOXAPARIN SOD INJ 40 MG/0.4 ML SYR SC SCH (17:00)
[2019-03-22 18:26] LABS: CREATINE KINASE MB 1.5 ng/mL (0-5.0)
[2019-03-22] MEDS ORDERED: IPRATROPIUM BROMIDE 0.06% 42 MCG NASPR NS SCH (21:00)
[2019-03-22] MEDS ORDERED: FAMOTIDINE 20 MG TAB PO SCH (21:00)
[2019-03-22] MEDS ORDERED: MONTELUKAST SODIUM 10 MG TAB PO SCH (21:00)
[2019-03-22] MEDS: GUAIFENESIN 600 MG TAB PO SCH (21:10)
[2019-03-22] MEDS: SALINE 0.65% NAS SOLN 1 SPRAY BTL SCH (22:00)
[2019-03-23] VITALS: BP 141/64
--- NOTE | 2019-03-23 02:54 | Consultation ---
DATE OF CONSULTATION: 03/22/2019 HISTORY OF PRESENT ILLNESS: I was kindly asked to see this 78-year-old woman for evaluation of sinus drainage. The patient reports roughly 2-year history of intermittent problems with her nose and sinuses with symptoms of excessive nasal drainage, nasal mucus drainage down her throat, hoarseness, and frequent throat clearing. She denies difficulty swallowing. She reports symptoms have been present and severe since January 2019. She has so much drainage down her throat that the mucus will accumulate in the back part of her throat and after prolonged paroxysms of coughing, she coughs up excessive mucus. There are no seasonal variations with her symptoms and she currently does not take medications for her nasal and sinus symptoms as part of her initial workup. During this hospitalization, she had a CT scan of her paranasal sinuses, which showed the paranasal sinuses and nasal cavities were clear. Her history of present illness, past medical history, and past surgical history were reviewed in detail in the chart. PHYSICAL EXAMINATION: The tympanic membranes and external auditory canals were normal. She had a mild nasal septal deviation. There was edema of the nasal mucosa. There was minimal inferior turbinate hypertrophy. She had a minimal postnasal drainage with symmetric elevation of the soft palate. She had minimal candidiasis of the dorsum of the tongue. The oral cavity was otherwise unremarkable. She had no palpable cervical adenopathy. On fiberoptic diagnostic rhinoscopy, she had minimal thick mucus at the ostiomeatal complex. There was no active infection identified. There were no masses or polyps noted. On fiberoptic laryngoscopy showed normal vocal cord motion. There were no masses. She had minimal edema of the posterior commissure of the larynx and minimal bilateral vocal cord edema. ASSESSMENT: 1. Chronic rhinosinusitis. 2. Possible allergic rhinitis. 3. Possible laryngopharyngeal reflux. 4. Hoarseness. PLAN: 1. Guaifenesin 1200 mg b.i.d. 2. [place] nasal spray two puffs each side of the nose q.4 hours, while awake. 3. Ipratropium 0.06% two puffs each side of the nose t.i.d. p.r.n. 4. Pepcid 20 mg p.o. at bedtime. 5. Outpatient followup and treatment. Thank you very much. MD PATO Rosario/ARACELIL /[id number]
[2019-03-23 04:00] VITALS: BP 142/63
[2019-03-23] MEDS: SALINE 0.65% NAS SOLN 1 SPRAY BTL SCH ×3 (06:00→15:53)
[2019-03-23 07:40] VITALS: BP 138/63
[2019-03-23] MEDS: FAMOTIDINE 20 MG/2 ML VIAL IV SCH ×2 (08:51→17:13)
[2019-03-23] MEDS: FLUTICASONE PROPIONATE NASAL SPRAY NS SCH (08:51)
[2019-03-23] MEDS: GUAIFENESIN 600 MG TAB PO SCH ×2 (09:00→15:55)
[2019-03-23] MEDS ORDERED: REGADENOSON 0.4 MG/5 ML SYR IV ONE (11:03)
[2019-03-23 13:00] VITALS: BP 119/58
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
[2019-03-23] MEDS: CEFTRIAXONE SOD 1 GM/NS 50 ML 50 ML IV SCH (15:53)
[2019-03-23] MEDS: ASPIRIN 81 MG ENTERIC COATED PO SCH (15:53)
[2019-03-23 16:05] VITALS: BP 116/57
--- NOTE | 2019-03-23 17:30 | NUR ---
Patient discharged home verbalized understanding of d/c instructions.
--- NOTE | 2019-03-24 00:35 | Discharge Summary ---
FINAL DISCHARGE DIAGNOSES: 1. Cough, congestion concerning for likely to be allergies and underlying sinusitis. 2. Abnormal EKG with left bundle-branch block, status post cardiac stress test found to be normal. No further workup needed by Cardiology. 3. Hypertension. 4. Morbid obesity. 5. 7 mm noncalcified left lower lobe pulmonary nodules. CONSULTANTS: ENT and Cardiology. PHYSICAL EXAMINATION: VITAL SIGNS: Temperature is 97.8, pulse 91, respiratory rate is 20, blood pressure 119/58, and pulse ox 96% on room air. LABORATORY DATA: Lab findings show white count 8.3, hemoglobin 10.8, hematocrit 35, and platelets of 265. Chemistry; sodium 138, potassium 4.2, chloride 109, bicarb 17, anion gap is 16, BUN is 20, creatinine 1.1, and calcium 9.3. Troponins were all negative. LDL is 98. MICROBIOLOGY: None. IMAGING STUDIES: Chest x-ray, no focal pneumonia or pulmonary edema. CT of the face, paranasal sinuses, nasal drainage pathways, and nasal cavities are all clear. There are some bilateral palate tonsilliths. CTA of the chest shows mild cardiomegaly, pulmonary artery and no evidence of pulmonary edema. Bilateral subsegment atelectasis and bilateral small wall thin cysts, 7 mm noncalcified left lower lobe nodules has discussed with the family at bedside and they verbalized to followup closely with the PCP several months for now and also referral to pile driving nozzleman for close followup and management. They verbalized understanding. HOSPITAL COURSE: This is a 78-year-old female, who comes into the ED mainly for cough and congestion ongoing for the last several months and was found to have an abnormal EKG with left bundle-branch block. Cardiology and ENT were consulted. From a Cardiology standpoint, the patient was seen and evaluated at bedside. Cardiac stress test was performed, and according to Cardiology when I discussed this with them, he reports that the cardiac stress test was found to be negative. She does need to follow up with him in his office. The patient has been cleared by Cardiology and no further cardiac workup was needed per Cardiology's note. In relation to her underlying cough and congestion, the patient was on lisinopril, which could be a culprit of her underlying coughing fits in which she was discontinued and started on losartan. I did consult with ENT, Dr. Macias, who came in and evaluated her and was able to do the rhinoscopy and he was able to see minimal thick mucosa. There was no masses or polyps seen. fiberoptic laryngoscope that showed normal vocal cord motion. There was no masses seen. We felt that the patient likely had chronic and possibly viral rhinitis and also possibly acid reflux leading to hoarseness. Recommend follow up in his office in the next 1 to 2 weeks. If not resolved, the patient will need allergy testing. The patient was cleared for discharge by both consultants, ENT and Cardiology. On the day of discharge, vital signs were stable, labs reviewed and stable. The patient was seen, evaluated, and examined thoroughly on the day of discharge. No other complaints. The patient verbalized understanding and agreed to plan of care to follow up accordingly as an outpatient with the primary care physician in 1 week and the Plant Operations Worker and ENT specialist in 2 weeks' time. MEDICATIONS: See med reconciliation form. DISPOSITION: Home. CONDITION: Stable. DIET: Heart healthy. In the event of any worsening symptoms, the patient was advised to come back to the ED for further evaluation. Discharge summary took greater than 35 minutes. MD BRANT Padilla/MYA /[id number]
--- NOTE | 2019-04-04 13:43 | Myoview Stress Test ---
DATE OF STUDY: 03/23/2019 11:00:00 Stress Test - Treadmill ONLY ADDITIONAL DATE OF SERVICE: 03/23/2019 This is a 2D protocol because of morbid obesity. Nuclear gated myocardial perfusion scan performed as per protocol at Nuclear [facility] Lab at [facility] Lexiscan injected 0.4 mg intravenous stress agent. 30 mCi of Myoview injected resting protocol and 33 mCi for stress protocol. IMPRESSION: 1. Normal gated myocardial perfusion scan. No ischemia or scar noted. Left ventricular ejection fraction is 65%. 2. Normal study. 3. I supervised and interpreted the nuclear stress test. MD SHAHBAZ DavisB/MODL /[id number]
[2019-05-29] MEDS ORDERED: BACTRIM DS TAB1 EACH PO (17:09)
[2019-05-29] MEDS ORDERED: FLUTICASONE PRO16 GM (17:09)
[2019-05-29] MEDS ORDERED: OMEPRAZOLE40 MG PO (17:09)
[2019-05-29] MEDS ORDERED: CARVEDILOL3.125 MG PO (17:09)
[2019-05-29] MEDS ORDERED: ASPIR 8181 MG PO (17:09)
== END 2019-03-23 17:18 | disposition home or self-care (01) ==
LOC: ER 14:45 → ERHOLD 17:12 → MED/SURG2 19:55
PROVIDERS: ADMIT Internal Medicine; ATTEND Internal Medicine
DX: J32.9 Chronic sinusitis, unspecified (principal); I44.7 Left bundle-branch block, unspecified; R94.31 Abnormal electrocardiogram [ECG] [EKG]; E66.01 Morbid (severe) obesity due to excess calories; Z68.43 Body mass index [BMI] 50.0-59.9, adult; R91.1 Solitary pulmonary nodule; R07.89 Other chest pain; I10 Essential (primary) hypertension; R49.0 Dysphonia; J38.4 Edema of larynx; R26.9 Unspecified abnormalities of gait and mobility
CPT/HCPCS: 36415; 70486; 71046; 71250; 78452; 80048; 80053; 80061; 82550 ×2; 82553 ×2; 83880; 84484 ×2; 85025 ×2; 85379; 93005; 93017; 94640; 99284; A9502; G0378 ×3; J0696 ×2; J1200; J1650; J2785

== ENCOUNTER 2019-05-30 12:30 | Observation (INO) | payer MEDICARE ==
--- NOTE | 2019-05-29 16:15 | NUR ---
Pt arrived in general good physical health for interview of scheduled procedure. Review of medical history and current medications. Procedural consent, pre-op orders, and Hibiclens bath education completed. All questions clarified and or answered where appropriate. pt verbalizes understanding to include day of procedure expectations. - f
[2019-05-29 17:39] LABS: BASOPHILS % 0.2 % (0.0-1.0); HEMATOCRIT 33.9 % (34.2-44.1); HEMOGLOBIN 10.8 g/dL (12.0-16.0); LYMPHOCYTES # (AUTO) 1.4 (1.0-3.2); LYMPHOCYTES % 11.6 % (18.0-39.1); MEAN CORPUSCULAR HEMOGLOBIN 27.6 pg (28-32); MEAN CORPUSCULAR HGB CONC 31.9 g/dL (31-35); MEAN CORPUSCULAR VOLUME 86.7 fL (81-99); MONOCYTES # (AUTO) 0.3 (0.2-0.8); MONOCYTES % 2.1 % (4.4-11.3); NEUTROPHILS # (AUTO) 10.4 (2.1-6.9); NEUTROPHILS % 85.4 % (38.7-80.0); PLATELET COUNT 323 x10e3/uL (140-360); RED BLOOD COUNT 3.91 x10e6/uL (3.6-5.1); RED CELL DISTRIBUTION WIDTH 14.6 % (11.7-14.4)
[2019-05-29 17:49] LABS: INR 0.92; PROTHROMBIN TIME 12.9 seconds (11.9-14.5)
[2019-05-29 17:50] LABS: PARTIAL THROMBOPLASTIN TIME 28.9 seconds (23.8-35.5)
[2019-05-29 17:56] LABS: ALBUMIN 3.3 g/dL (3.5-5.0); ALBUMIN/GLOBULIN RATIO 0.7 (0.8-2.0); ANION GAP 14.5 mmol/L (8-16); CREATININE, SERUM 1.67 mg/dL (0.57-1.11); POTASSIUM 4.5 mmol/L (3.5-5.1)
[2019-05-29 18:07] LABS: CHOL/HDL RATIO 3.9 (3.0-3.6)
[~2019-05-30] VITALS: Ht 142.2 cm; Wt 101.6 kg
[~2019-05-30 12:30] MED LIST: ASPIR 8181 MG PO; BACTRIM DS TAB1 EACH PO; CARVEDILOL3.125 MG PO; FLUTICASONE PRO16 GM; LISINOPRIL10 MG PO; MELOXICAM15 MG PO; OMEPRAZOLE40 MG PO; VENTOLIN HFA18 GM INH
--- OUTSIDE RECORDS SUMMARY | 2019-05-30 12:46 | XMS REPORT | Clinical Summary ---
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 esophagitis 04/08/2020 Active amLODIPine (NORVASC) 10 Take 1 tablet 90 tablet 1 mg tabletIndications: (10 mg total) 9 Essential hypertension by mouth daily. Active cetirizine (ZyrTEC) 10 MG Take 10 mg by 0 tablet mouth daily. Active fluticasone propionate 2 sprays (100 15.8 mL 0 (FLONASE) 50 mcg total) by 9 mcg/actuation nasal Each Nare sprayIndications: Nasal route daily. congestion, Chronic cough 06/01/2019 Active predniSONE (DELTASONE) 20 Take 1 tablet 5 tablet 0 mg tablet (20 mg total) 9 by mouth daily for 5 days. 06/03/2019 Active sulfamethoxazole-trimetho Take 1 tablet 14 tablet 0 prim (BACTRIM DS) 800-160 by mouth 2 9 mg per tablet (two) times a day for 7 days. 01/14/2019 Discontinued lisinopril Take 1 tablet 60 tablet 5 (PRINIVIL,ZESTRIL) 10 mg (10 mg total) 6 tabletIndications: by mouth Essential hypertension daily. 05/01/2019 Discontinued (Patient Reported) meloxicam (MOBIC) 15 mg Take 1 tab 30 tablet 1 tabletIndications: Acute daily with 9 pain of right knee, Pain food for knee in both feet & feet pain 05/01/2019 Discontinued (Patient Reported) triamcinolone (KENALOG) Apply to 30 g 0 0.5 % affected area 9 ointmentIndications: two times a Dermatitis day for 2 weeks 01/24/2019 amoxicillin-pot Take 1 tablet 20 tablet [...] sinusitis, Nasal each nostril congestion as directed 03/29/2019 Discontinued (Discontinued by another clinician) lisinopril Take 1 tablet 90 tablet 1 (PRINIVIL,ZESTRIL) 10 mg (10 mg total) 9 tabletIndications: by mouth Essential hypertension daily. 05/01/2019 Discontinued (Patient Reported) montelukast (SINGULAIR) Take 1 tablet 30 tablet 3 10 mg tabletIndications: (10 mg total) 9 Nasal congestion, Chronic by mouth cough nightly. 05/27/2019 Discontinued (Reorder) fluticasone propionate 2 sprays (100 15.8 mL 0 (FLONASE) 50 mcg total) by 9 mcg/actuation nasal Each Nare sprayIndications: Nasal route daily. congestion, Chronic cough 05/24/2019 Discontinued albuterol (PROAIR Inhale 2 18 g 0 HFA,PROVENTIL puffs 2 (two) 9 HFA,VENTOLIN HFA) 90 times a day mcg/actuation inhaler as needed for wheezing or shortness of breath. 03/10/2019 nitrofurantoin, Take 1 14 capsule 0 macrocrystal-monohydrate, capsule (100 9 (MACROBID) 100 MG capsule mg total) by mouth 2 (two) times a day for 7 days. 04/09/2019 Discontinued (Med List Cleanup) losartan (COZAAR) 25 MG Take 25 mg by 0 tablet mouth daily. 05/01/2019 Discontinued (Patient Reported) pantoprazole (PROTONIX) 1 tablet once 0 40 MG EC tablet a day 9 04/09/2019 Discontinued (Therapy completed) amoxicillin-pot TK 1 T PO BID 0 clavulanate (AUGMENTIN) FOR 7 DAYS 9 875-125 mg per tablet 05/01/2019 Discontinued (Patient Reported) benzonatate (TESSALON) TK 1 C PO TID 0 100 MG capsule PRN FOR COUGH 9 05/01/2019 Discontinued (Duplicate order) amLODIPine (NORVASC) 5 mg Take 1 tablet 30 tablet 3 tablet (5 mg total) 9 by mouth daily. 04/03/2019 predniSONE (DELTASONE) 20 Take 1 tablet 5 tablet 0 mg tabletIndications: (20 mg total) 9 Itching, Allergic by mouth reaction, initial daily for 5 encounter days. 04/14/2019 predniSONE (DELTASONE) 20 Take 1 tablet 5 tablet 0 mg tabletIndications: (20 mg total) 9 Itching by mouth daily for 5 days. Active Problems Problem Noted Date Itching 03/29/2019 Allergic reaction 03/29/2019 Heel pain, chronic, left 03/29/2019 Gastroesophageal reflux disease without esophagitis 03/29/2019 Chronic cough 02/28/2019 Medicare annual wellness visit, subsequent 02/28/2019 Screening for breast cancer 02/28/2019 Screening for colon cancer 02/28/2019 Acute maxillary sinusitis 01/14/2019 Urinary frequency 01/14/2019 Nasal congestion 01/14/2019 CKD (chronic kidney disease), stage III 01/14/2019 Post-nasal drip 08/22/2016 Essential hypertension 08/22/2016 Memory change 07/11/2016 Encounters Care Team Description Date Type Specialty Lena Mercado MD 05/27/2019 Telephone Urology Lena Mercado MD 05/27/2019 Orders Only Urology Aicha Benjamin, Nasal congestion; Chronic cough 05/27/2019 Refill Internal Medicine Lena Mercado MD Preoperative testing (Primary Dx) 05/24/2019 Pre-Admit Pre-Admission Testing Testing Appointment Lena Mercado MD 05/24/2019 Telephone Urology Lena Mercado MD 05/21/2019 Telephone Urology Lena Mercado MD SUI (stress urinary incontinence, female) (Primary Dx); Urinary frequency 05/01/2019 Procedure visit Urology Aicha Benjamin DO Stewart, Julie N., MD SUI (stress urinary incontinence, female) (Primary Dx); Urinary frequency 04/11/2019 Office Visit Urology Aicha Benjamin, Itching (Primary Dx); Gastroesophageal reflux disease without esophagitis; Essential hypertension 04/09/2019 Office Visit Family Medicine Aicha Benjamin, Essential hypertension (Primary Dx) 04/04/2019 Telephone Family Medicine Aicha Benajmin, Itching (Primary Dx); Allergic reaction, initial encounter; Heel pain, chronic, left; Gastroesophageal reflux disease without esophagitis 03/29/2019 Office Visit Family Medicine Aicha Benjamin, 03/25/2019 Telephone Family Medicine Aicha Benjamin, 03/21/2019 Telephone Internal Medicine Aicha Benjamin, 03/05/2019 Telephone Internal Medicine BenjaminAicha, DO 03/03/2019 Orders Only Family Medicine Aicha Benjamin, Screening for colon cancer; Chronic cough; Medicare annual wellness visit, subsequent; Essential hypertension; Urinary frequency; CKD (chronic kidney disease), stage III (HCC) 02/28/2019 Lab Lab Aicha Benjamin, Medicare annual wellness visit, subsequent (Primary Dx); Nasal congestion; Chronic cough; Screening for breast cancer; Screening for colon cancer; Essential hypertension; Urinary frequency; CKD (chronic kidney disease), stage III (HCC); Urinary incontinence, unspecified type 02/28/2019 Office Visit Family Medicine Aicha Benjamin, 02/28/2019 Orders Only Family Medicine Markus Moore Screening for colon cancer (Primary Dx); Medicare annual wellness visit, subsequent 02/28/2019 Orders Only Family Medicine Aicha Benjamin, Acute recurrent maxillary sinusitis; Essential hypertension 01/14/2019 Lab Lab Aicha Benjamin, DO Acute recurrent maxillary sinusitis (Primary Dx); Essential hypertension; Urinary frequency; Nasal congestion; CKD (chronic kidney disease), stage III (HCC) 01/14/2019 Office Visit Family Medicine Beryl Martinez RN 01/14/2019 Telephone Family Medicine Susana Espinoza MD Acute pain of right knee (Primary Dx); Pain in both feet; Dermatitis 12/12/2018 Office Visit Family Medicine after 05/29/2018 Immunizations Name Administration Dates Next Due Influenza Trivalent 06/13/2018, 07/14/2016 Zoster 06/13/2016 Family History Medical History Relation Name Comments Heart attack Father Diabetes Mother Relation Name Status Comments Father Mother Social History Date Tobacco Use Types Packs/Day Years Used Never Smoker Smokeless Tobacco: Never Used Tobacco Cessation: Counseling Given: No Drinks/Week oz/Week Comments Alcohol Use No Sex Assigned at Date Recorded Not on file Industry Job Start Date Occupation Not on file Not on file Not on file Travel End Travel History Travel Start No recent travel history available. Last Filed Vital Signs Reading Time Taken Comments Vital Sign 157/72 05/24/2019 1:43 PM CDT Blood Pressure 81 05/24/2019 1:43 PM CDT Pulse 36.5 C (97.7 F) 04/09/2019 1:27 PM CDT Temperature 12 05/24/2019 1:43 PM CDT Respiratory Rate 98% 05/24/2019 1:43 PM CDT Oxygen Saturation - - Inhaled Oxygen Concentration 102 kg (224 lb) 05/24/2019 1:43 PM CDT Weight 142.2 cm (4' 8") 05/24/2019 1:43 PM CDT Height 50.22 05/24/2019 1:43 PM CDT Body Mass Index Plan of Treatment Care Team Description Date Type Specialty Samantha Ortega, KERRIE [id number] [place], [place] [id number] 05/24/2019 Anesthesia Urology Event Health Maintenance Due Date Last Done Comments COLONOSCOPY SCREENING 1992 SHINGLES VACCINES (#1) 1992 65+ PNEUMOCOCCAL VACCINE 12/12/2007 (1 of 2 - PCV13) INFLUENZA VACCINE 04/04/2019 06/13/2018, 07/18/2016, 07/14/2016, Additional history exists Procedures Comments Procedure Name Priority Date/Time Associated Diagnosis GRAM STAIN Routine 05/24/2019 3:14 PM CDT URINE CULTURE Routine 05/24/2019 3:14 PM CDT ECG PRE/POST OP Routine 05/24/2019 Preoperative testing 2:03 PM CDT ESTIMATED GFR Routine 05/24/2019 1:49 PM CDT URINALYSIS SCREEN AND Routine 05/24/2019 Preoperative testing MICROSCOPY, WITH REFLEX 1:49 PM CDT TO CULTURE COMPREHENSIVE METABOLIC Routine 05/24/2019 Preoperative testing PANEL 1:49 PM CDT CBC HEMOGRAM Routine 05/24/2019 Preoperative testing 1:49 PM CDT PROTHROMBIN TIME WITH INR Routine 05/24/2019 Preoperative testing 1:49 PM CDT PARTIAL THROMBOPLASTIN Routine 05/24/2019 Preoperative testing TIME (PTT) 1:49 PM CDT FL URETHROGRAM URO Routine 05/01/2019 THANH (stress urinary 4:33 PM CDT incontinence, female) Urinary frequency LABORIE URODYNAMICS Routine 05/01/2019 THANH (stress urinary 4:09 PM CDT incontinence, female) Urinary frequency [id number] Routine 04/11/2019 Urinary frequency 2:18 PM CDT XR CHEST 2 VW Routine 02/28/2019 Chronic [...] of right knee 11:53 AM CDT after 05/29/2018 Results * Gram stain (05/24/2019 3:14 PM CDT) Gram stain No WBC's or organisms seen. [place] result Comment: [place] Specimen Information [facility] Specimen Source: Urine Specimen Site: Clean catch Specimen Urine Performing Organization Address City/State/Zipcode Phone Number [facility] DEPARTMENT OF [address] [place] [address] PATHOLOGY AND GENOMIC MEDICINE [address] * Urine culture (05/24/2019 3:14 PM CDT) Only the most recent of 2 results within the time period is included. Urine culture Mixed brennan 10-4 col/cc (A) [place] isolate Comment: [place] Specimen Information [facility] Specimen Source: Urine Specimen Site: Clean catch Urine culture Escherichia coli GALEANO isolate >10-5 cfu/ml [place] The performance HOSPITAL characteristics of this assay on this isolate were validated by the Microbiology Laboratory at [facility].This source has not been approved by the U.S. Food and Drug Administration.The results are not intended to be used as the sole means for clinical diagnosis or patient management.The Microbiology Laboratory is authorized under the clinical Laboratory Improvement Amendments of 1988 (CLIA-88) to perform high complexity testing. testing. (A) Comment: Previous comment was modified by I/AUT at 20:39 on 05/26/2019 The performance characteristics of this assay on this isolate were validated by the Microbiology Laboratory at [facility]. This source has not been approved by the U.S. Food and Drug Administration. The results are not intended to be used as the sole means for clinical diagnosis or patient management. The Microbiology Laboratory is authorized under the clinical Laboratory Improvement Amendments of 1988 (CLIA-88) to perform high complexity testing. Urine culture Klebsiella aerogenes [place] isolate 10-4 cfu/ml [place] The performance HOSPITAL characteristics of this assay on this isolate were validated by the Microbiology Laboratory at [facility].This source has not been approved by the U.S. Food and Drug Administration.The results are not intended to be used as the sole means for clinical diagnosis or patient management.The Microbiology Laboratory is authorized under the clinical Laboratory Improvement Amendments of 1988 (CLIA-88) to perform high complexity testing. The performance characteristics of this assay on this isolate were validated by the Microbiology Laboratory at [facility].This source has not been approved by the U.S. Food and Drug Administration.The results are not intended to be used as the sole means for clinical diagnosis or patient management.The Microbiology Laboratory is authorized under the clinical Laboratory Improvement Amendments of 1988 (CLIA-88) to perform high complexity testing. testing. This organism is NOT a carbapenemase producing organism. (A) Comment: Previous value was Klebsiella aerogenes verified by I/AUT at 13:12 on 05/26/2019 Previous comment was modified by I/AUT at 11:14 on 05/27/2019 The performance characteristics of this assay on this isolate were validated by the Microbiology Laboratory at [facility]. This source has not been approved by the U.S. Food and Drug Administration. The results are not intended to be used as the sole means for clinical diagnosis or patient management. The Microbiology Laboratory is authorized under the clinical Laboratory Improvement Amendments of 1988 (CLIA-88) to perform high complexity testing. The performance characteristics of this assay on this isolate were validated by the Microbiology Laboratory at [facility]. This source has not been approved by the U.S. Food and Drug Administration. The results are not intended to be used as the sole means for clinical diagnosis or patient management. The Microbiology Laboratory is authorized under the clinical Laboratory Improvement Amendments of 1988 (CLIA-88) to perform high complexity testing. Specimen Urine Antibiotic Method Susceptibility Organism Ampicillin EKTA <=2 mcg/mL: Susceptible Escherichia coli Amoxicillin/Clavulanate EKTA 8/4 mcg/mL: Susceptible Escherichia coli Amikacin EKTA <=4 mcg/mL: Susceptible Escherichia coli Aztreonam EKTA <=1 mcg/mL: Susceptible Escherichia coli Ceftazidime EKTA <=0.5 mcg/mL: Susceptible Escherichia coli Ciprofloxacin EKTA <=0.5 mcg/mL: Susceptible Escherichia coli Ceftriaxone EKTA <=0.5 mcg/mL: Susceptible Escherichia coli Cefuroxime Sodium EKTA <=4 mcg/mL: Susceptible Escherichia coli Cefazolin EKTA <=1 mcg/mL: Susceptible Escherichia coli Cefepime EKTA <=0.5 mcg/mL: Susceptible Escherichia coli Nitrofurantoin EKTA 32 mcg/mL: Susceptible Escherichia coli Cefoxitin EKTA <=4 mcg/mL: Susceptible Escherichia coli Gentamicin EKTA <=1 mcg/mL: Susceptible Escherichia coli Imipenem EKTA <=0.25 mcg/mL: Susceptible Escherichia coli Levofloxacin EKTA <=1 mcg/mL: Susceptible Escherichia coli Meropenem EKTA <=0.125 mcg/mL: Susceptible Escherichia coli Tobramycin EKTA 1 mcg/mL: Susceptible Escherichia coli Ampicillin/Sulbactam EKTA 4/2 mcg/mL: Susceptible Escherichia coli Trimethoprim/Sulfamethoxazole EKTA <=0.5/9.5 mcg/mL: Susceptible Escherichia coli Tetracycline EKTA <=1 mcg/mL: Susceptible Escherichia coli Piperacillin/Tazobactam EKTA <=2/4 mcg/mL: Susceptible Escherichia coli Ertapenem EKTA <=0.125 mcg/mL: Susceptible Escherichia coli Tigecycline ETKA <=0.5 mcg/mL: Susceptible Escherichia coli Ampicillin EKTA >16 mcg/mL: Resistant Klebsiella aerogenes Amoxicillin/Clavulanate EKTA >16/8 mcg/mL: Resistant Klebsiella aerogenes Amikacin EKTA <=4 mcg/mL: Susceptible Klebsiella aerogenes Aztreonam EKTA <=1 mcg/mL: Susceptible Klebsiella aerogenes Ceftazidime EKTA <=0.5 mcg/mL: Susceptible Klebsiella aerogenes Ciprofloxacin EKTA <=0.5 mcg/mL: Susceptible Klebsiella aerogenes Ceftriaxone EKTA <=0.5 mcg/mL: Susceptible Klebsiella aerogenes Cefuroxime Sodium EKTA 8 mcg/mL: Susceptible Klebsiella aerogenes Cefazolin EKTA >32 mcg/mL: Resistant Klebsiella aerogenes Cefepime EKTA <=0.5 mcg/mL: Susceptible Klebsiella aerogenes Nitrofurantoin EKTA 64 mcg/mL: Resistant Klebsiella aerogenes Cefoxitin EKTA >16 mcg/mL: Resistant Klebsiella aerogenes Gentamicin EKTA 1 mcg/mL: Susceptible Klebsiella aerogenes Imipenem EKTA 4 mcg/mL: Resistant Klebsiella aerogenes Levofloxacin EKTA <=1 mcg/mL: Susceptible Klebsiella aerogenes Meropenem EKTA <=0.125 mcg/mL: Susceptible Klebsiella aerogenes Tobramycin EKTA 1 mcg/mL: Susceptible Klebsiella aerogenes Ampicillin/Sulbactam EKTA >16/8 mcg/mL: Resistant Klebsiella aerogenes Trimethoprim/Sulfamethoxazole EKTA <=0.5/9.5 mcg/mL: Susceptible Klebsiella aerogenes Tetracycline EKTA <=1 mcg/mL: Susceptible Klebsiella aerogenes Piperacillin/Tazobactam EKTA 4/4 mcg/mL: Susceptible Klebsiella aerogenes Ertapenem EKTA 0.25 mcg/mL: Susceptible Klebsiella aerogenes Tigecycline EKTA 1 mcg/mL: Susceptible Klebsiella aerogenes Performing Organization Address [facility] Phone Number [facility] DEPARTMENT OF [address] [place] [address] PATHOLOGY AND GENOMIC MEDICINE [address] * ECG Pre/Post Op (05/24/2019 2:03 PM CDT) Ventricular 73 [facility] rate Atrial rate 73 [facility] ND interval 148 [facility] QRSD interval 144 [facility] QT interval 454 [facility] QTC interval 500 [facility] P axis 1 57 [facility] QRS axis 1 60 [facility] T wave axis 50 [facility] EKG impression Normal sinus rhythm-Left [facility] bundle branch block-Abnormal ECG-No previous ECGs available- Specimen Narrative Performed At Performing Organization Address [facility] Phone Number [facility] [address] [place] [address] * Urinalysis screen and microscopy, with reflex to culture (05/24/2019 1:49 PM CDT) Specimen site Clean catch [facility] Color, UA Yellow [facility] Appearance, UA Hazy [facility] Specific 1.015 1.001 - 1.035 [place] gravity, UA [facility] pH, UA 5.0 5.0 - 8.5 [facility] Protein, UA 2+ (A) Negative [facility] Glucose, UA Negative Negative [facility] Ketones, UA Negative Negative [facility] Bilirubin, UA Negative Negative [facility] Blood, UA Negative Negative [facility] Nitrite, UA Negative Negative [facility] Urobilinogen, <2.0 <2.0 [facility] Leukocyte Negative Negative [place] esterase, [facility] Epithelial 1 /HPF [place] cells, [facility] WBC, UA 6 (H) 0 - 4 /HPF [facility] RBC, UA 1 0 - 5 /HPF [facility] Bacteria, UA Few None seen [facility] Yeast, UA None seen [facility] Yeast with None seen [place] [facility] Hyaline casts, 12 /LPF [facility] Specimen Urine Performing Organization Address City/[facility] Cent[facility] Phone Number [facility] [place] [address] PATHOLOGY AND GENOMIC MEDICINE [address] * Estimated GFR (05/24/2019 1:49 PM CDT) [facility] Estimated GFR 34 (A) mL/min/1.73 m2 [place] Comment: [facility] rpretation G1 >=90 Normal or high G2 60-89Mildly decreased [id number] Mildly to moderately decreased [id number] Moderately to severely decreased G4 15-29Severely decreased G5 <15Kidney failure The eGFR was calculated using the Chronic Kidney Disease Epidemiology Collaboration (CKD-EPI) equation. Interpretation is based on recommendations of the National Kidney Foundation-Kidney Disease Outcomes Quality Initiative (NKF-KDOQI) published in 2014. Specimen Plasma specimen Performing Organization Address City/[facility]ode Phone Number [facility] [place] [address] PATHOLOGY AND GENOMIC MEDICINE [address] * Partial thromboplastin time, activated (05/24/2019 1:49 PM CDT) [facility] PTT 31.6 23.0 - 36.0 sec [place] Comment: [place] PTT therapeutic range for HOSPITAL unfractionated heparin is 61.0-112.0 seconds which corresponds to Anti-Xa 0.3-0.7 U/ml. Specimen Blood Performing Organization Address City/State/Zipcode Phone Number [facility] DEPARTMENT OF [address] [place] [id number] PATHOLOGY AND GENOMIC MEDICINE [address] * Prothrombin time with INR (05/24/2019 1:49 PM CDT) [facility] Prothrombin 13.3 11.5 - 14.5 sec [facility] INR 1.0 [place] Comment: [facility] [employer] Normalized HOSPITAL Ratio (INR) is a therapeutic monitoring tool for patients who are stable on oral anticoagulant therapy. An INR of 2.0-3.0 is suggested for deep vein thrombosis/pulmonary embolism. Specimen Blood Performing Organization Address City/[facility]/Zipcode Phone Number [facility] [place] [address] PATHOLOGY AND GENOMIC MEDICINE [address] * CBC hemogram (05/24/2019 1:49 PM CDT) [facility] WBC 10.07 4.50 - 11.00 k/uL [facility] RBC 4.14 (L) 4.20 - 5.50 m/uL [facility] HGB 11.0 (L) 12.0 - 16.0 g/dL [facility] HCT 36.8 (L) 37.0 - 47.0 % [facility] MCV 88.9 82.0 - 100.0 fL [facility] MCH 26.6 (L) 27.0 - 34.0 pg [facility] MCHC 29.9 (L) 31.0 - 37.0 g/dL [facility] RDW - SD 47.5 37.0 - 55.0 fL [facility] MPV 11.0 8.8 - 13.2 fL [facility] Platelet count 364 150 - 400 k/uL [facility] Nucleated RBC 0.00 /100 WBC [facility] Specimen Blood Performing Organization Address City/State/Zipcode Phone Number [facility] DEPARTMENT OF [address] [place] [address] PATHOLOGY AND GENOMIC MEDICINE [address] * Comprehensive metabolic panel (05/24/2019 1:49 PM CDT) Only the most recent of 3 results within the time period is included. [facility] Sodium 144 135 - 148 mEq/L [facility] Potassium 4.1 3.5 - 5.0 mEq/L [facility] Chloride 105 98 - 112 mEq/L [facility] CO2 25 24 - 31 mEq/L [facility] Anion gap 14@ANIO 7 - 15 mEq/L [facility] BUN 17 8 - 23 mg/dL [facility] Creatinine 1.46 (H) 0.50 - 0.90 mg/dL [facility] Glucose 106 (H) 65 - 99 mg/dL [facility] Calcium 9.9 8.8 - 10.2 mg/dL [facility] Protein 8.2 6.3 - 8.3 g/dL [place] Comment: [facility] 4.6-7.0 g/dL 1 week 4.4-7.6 g/dL 7 months-1year 5.1-7.3 g/dL 1-2 years5.6-7 .5 g/dL >3 years6.0-8 .0 g/dL 18-150 6.3-8.3 g/dL Albumin 3.5 3.5 - 5.0 g/dL [facility] A/G ratio 0.7 0.7 - 3.8 [facility] Alkaline 97 35 - 104 U/L [place] phosphatase [facility] AST 19 10 - 35 U/L [facility] ALT 23 5 - 50 U/L [facility] Total bilirubin 0.3 0.0 - 1.2 mg/dL [facility] Specimen Plasma specimen Performing Organization Address City/[facility]/Zipcode Phone Number [facility] [place] [address] PATHOLOGY AND GENOMIC MEDICINE [address] * FL URETHROGRAM URO (05/01/2019 4:33 PM CDT) * [employer] (05/01/2019 4:09 PM CDT) Specimen Narrative Performed At Performing Organization Address City/[facility]ode Phone Number [facility] * POC BLADDER SCAN/PVR (04/11/2019 2:18 PM CDT) PVR volume 22ml Specimen Urine * XR Chest 2 Vw (02/28/2019 4:37 PM CDT) Specimen Narrative Performed At EXAMINATION:XR CHEST 2 VW RADIANT CLINICAL HISTORY:R05 Cough, Chronic cough of 3 months COMPARISON:None IMPRESSION: Heart size is within the upper limits of normal.Pulmonary vessels are in the normal range.There is patchy atelectasis at the right lung base medially.Lung quiles are otherwise clear. [id number] Procedure Note Hm Interface, Radiology Results Incoming - 02/28/2019 4:47 PM CDT EXAMINATION: XR CHEST 2 VW CLINICAL HISTORY: R05 Cough, Chronic cough of 3 months COMPARISON: None IMPRESSION: Heart size is within the upper limits of normal. Pulmonary vessels are in the normal range. There is patchy atelectasis at the right lung base medially. Lung quiles are otherwise clear. [facility]-[id number] Performing Organization Address City/[facility]/Zipcode Phone Number [facility] [address] [place] [address] * Urinalysis, automated with microscopy (02/28/2019 3:55 PM CDT) Only the most recent of 2 results within the time period is included. Color, UA YELLOW YELLOW [facility] [place] Appearance CLEAR CLEAR [facility] [place] Specific 1.014 1.001 - 1.035 [facility] gravity, urine [facility] [place] pH, urine 5.5 5.0 - 8.0 [facility] [place] Glucose, urine NEGATIVE NEGATIVE [facility] [place] Bilirubin, UA NEGATIVE NEGATIVE [facility] [place] Ketones, UA NEGATIVE NEGATIVE [facility] [place] Occult blood, NEGATIVE NEGATIVE [facility] [place] Protein, UA 1+ (A) NEGATIVE [facility] [place] Nitrite, UA NEGATIVE NEGATIVE [facility] [place] Leukocyte 2+ (A) NEGATIVE [facility] esterase, UA [facility] [place] WBC, UA > OR=60 (A) < OR=5 /HPF [facility] [place] RBC, UA NONE SEEN < OR=2 /HPF [facility] [place] Squamous NONE SEEN < OR=5 /HPF [facility] epithelial [facility]AGNOSTICS cells, UA [place] Bacteria, UA NONE SEEN NONE SEEN /HPF [facility] [place] Hyaline casts, NONE SEEN NONE SEEN /LPF [facility]A [facility] [place] Specimen Urine Resulting Agency Comment Performing Organization Information: Site ID: [id number] Name: [email or web address] Lab Address: [address] [place] [address] Director: Stephanie Sellers Performing Organization Address City/State/Zipcode Phone Number [employer] [place] [address] [place] [address] * CBC with platelet and differential (02/28/2019 3:55 PM CDT) Only the most recent of 2 results within the time period is included. [facility] WBC 9.0 3.8 - 10.8 [facility] Thousand/uL [facility] RBC 4.30 3.80 - 5.10 [facility] Million/uL [facility] [place] HGB 11.5 (L) 11.7 - 15.5 g/dL [employer] [facility] HCT 36.1 35.0 - 45.0 % [employer] [facility] [place] MCV 84.0 80.0 - 100.0 fL [employer] [facility] [place] MCH 26.7 (L) 27.0 - 33.0 pg [employer] [facility] [place] MCHC 31.9 (L) 32.0 - 36.0 g/dL [employer] [facility] [place] RDW 14.0 11.0 - 15.0 % [employer] [place] Platelet count 319 140 - 400 [facility] Thousand/uL [facility] MPV 11.8 7.5 - 12.5 fL [employer] [place] Neutrophils, 5,553 1,500 - 7,800 [facility] absolute cells/uL [facility] [place] Lymphocytes, 2,538 850 - 3,900 cells/uL [facility] [place] Monocytes, 648 200 - 950 cells/uL [facility] [place] Eosinophils, 198 15 - 500 cells/uL [facility] [place] Basophils, 63 0 - 200 cells/uL [facility] [place] Neutrophils 61.7 % [employer] [facility] Lymphocytes 28.2 % [employer] [place] Monocytes 7.2 % [employer] [place] Eosinophils 2.2 % [employer] [place] Basophils + RC 0.7 % [employer] [place] Specimen Blood Resulting Agency Comment Performing Organization Information: Site ID: [id number] Name: [facility] Lab Address: [address] [place] [id number] Director: Stephanie Sellers Performing Organization Address City/State/Zipcode Phone Number [facility] [address] [address] * Lipid panel (01/14/2019 2:07 PM CDT) [facility] Cholesterol, 181 <200 mg/dL [facility] total [facility] [place] HDL cholesterol 61 >50 mg/dL [employer] [facility] Triglycerides 110 <150 mg/dL [employer] [facility] [place] LDL cholesterol 99 mg/dL (calc) [facility] calculated Comment: DIAGNOSTICS Reference range: <100 [place] Desirable range <100 mg/dL for primary prevention; <70 mg/dL for patients with CHD or diabetic patients with > or=2 CHD risk factors. LDL-C is now calculated using the Jackie calculation, which is a validated novel method providing better accuracy than the Friedewald equation in the estimation of LDL-C. Huey SIMENTAL et al. NICK. 2013;310(19): 0119-6597 (http://education.[employer]/faq/YKQ874) Cholesterol/HDL 3.0 <5.0 (calc) [employer] [place] Non-HDL 120 <130 mg/dL (calc) [facility] cholesterol Comment: DIAGNOSTICS For patients with diabetes [place] plus 1 major ASCVD risk factor, treating to a non-HDL-C goal of <100 mg/dL (LDL-C of <70 mg/dL) is considered a therapeutic option. Specimen Blood Resulting Agency Comment Performing Organization Information: Site ID: [id number] Name: [email or web address] Lab Address: [address] [place] [id number] Director: Stephanie Sellers Performing Organization Address City/[facility] Phone Number [employer] [place] [phone] * XR Knee 4+ Vw Right (12/12/2018 [...] There is probable artifact/overlying the mid thigh. *[id number] Procedure Note Interface, Radiology Results Incoming - 12/12/2018 12:04 [...] There is probable artifact/overlying the mid thigh. 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
[2019-05-30 13:11] VITALS: BP 126/56
[2019-05-30] MEDS ORDERED: SODIUM CHLORIDE 0.9% 1000ML 1,000 ML ONE ×2 (13:38→14:36)
[2019-05-30] MEDS ORDERED: MIDAZOLAM HCL 2 MG/2 ML VIAL ONE (14:35)
[2019-05-30] MEDS ORDERED: HEPARIN SOD (PORCINE) 1000 UNIT/ML 30ML ONE (14:35)
[2019-05-30] MEDS ORDERED: FENTANYL CITRATE/PF 100MCG/2 ML INJ ONE (14:35)
[2019-05-30] MEDS ORDERED: LIDOCAINE HCL 2% LOCAL 20 ML VIAL ONE (14:35)
[2019-05-30] MEDS ORDERED: VERAPAMIL HCL 2.5 MG/ML 2 ML VIAL ONE (14:36)
[2019-05-30] MEDS ORDERED: HEPARIN SOD/SOD CHLORIDE 0 ML ONE (14:36)
[2019-05-30] MEDS ORDERED: IOPAMIDOL 370 MG/ML 200 ML INFUS..BTL INJ ONE (14:36)
[2019-05-30 14:53] LABS: ALBUMIN 3.2 g/dL (3.5-5.0); ALBUMIN/GLOBULIN RATIO 0.8 (0.8-2.0); ANION GAP 13.5 mmol/L (8-16); CALCIUM 9.3 mg/dL (8.4-10.2); CREATININE, SERUM 1.87 mg/dL (0.57-1.11); POTASSIUM 4.5 mmol/L (3.5-5.1)
--- NOTE | 2019-05-30 15:15 | NUR ---
pt taken to CCL. Alert oriented and appropriate, PERRLA, respirations even and unlabored to room air. Pulses x4 extremities equal and strong. Pedal pulses PT/DP present . Cap fill brisk < 3 sec. Skin warm and dry integrity appears intact . IV 22g to left hand presents healthy w/o s/s of infiltration or complaint. Abdomen soft and supple. pt denies need to urinate or defecate. No personal affects with patient. Family to waiting room. Pt and family verbalizes understanding of POC. fluids complete and waiting for CMP results. Patient transferred from PACU 20 by label sewer. Currently w/o complaint of pain or need. Patient introduced to cath team and brief summary provided to team. Transferred to procedure table max assist w/o leonora. P Dr Herrera to speak with patient regarding 2nd resulted CMP. procedure cx for later date. to be admitted for further evaluation -f
[2019-05-30 15:30] VITALS: BP 132/59
[2019-05-30 16:00] VITALS: BP 124/53
--- NOTE | 2019-05-30 16:30 | NUR ---
Dr Graf to see patient. awaiting for bed assigment
--- OUTSIDE RECORDS SUMMARY | 2019-05-30 17:19 | XMS REPORT | Clinical Summary ---
Author Author [employer] Address Unknown Phone Unavailable Care Team Providers Care Warehouse Logistics Coordinator Name Role Phone Aicha Benjamin DO PCP [...] Dx); Urinary frequency 05/01/2019 Procedure visit Urology Aihca Benjamin DO Stewart, Julie N., MD SUI (stress urinary incontinence, female) (Primary Dx); Urinary frequency 04/11/2019 Office Visit Urology Aicha Benjamin, Itching (Primary Dx); Gastroesophageal reflux disease without esophagitis; Essential hypertension 04/09/2019 Office Visit Family Medicine Aicha Benjamin, Essential hypertension (Primary Dx) 04/04/2019 Telephone Family Medicine iAcha Benjamin, Itching (Primary Dx); Allergic reaction, initial encounter; [...] Specialty Samantha Ortega, KERRIE [id number] [place], [place] [id number] 05/24/2019 Anesthesia Urology Event Health Maintenance Due [...] 4:09 PM CDT incontinence, female) Urinary frequency [id number] Routine 04/11/2019 Urinary frequency 2:18 PM CDT [...] Gram stain No WBC's or organisms seen. [facility] result Comment: DENOMINATIONAL Specimen Information [facility] Specimen Source: Urine Specimen Site: Clean catch Specimen Urine Performing Organization Address City/State/Zipcode Phone Number [facility] DEPARTMENT OF [address] [place] [address] PATHOLOGY AND GENOMIC MEDICINE [address] * Urine culture (05/24/2019 3:14 PM CDT) Only the most recent of 2 results within the time period is included. Urine culture Mixed brennan 10-4 col/cc (A) GALEANO isolate Comment: DENOMINATIONAL Specimen Information [facility] Specimen Source: Urine Specimen Site: Clean catch Urine culture Escherichia coli GALEANO isolate >10-5 cfu/ml DENOMINATIONAL The performance HOSPITAL characteristics of this assay on this isolate were validated by the Microbiology Laboratory at [facility].This source has not been approved by [...] were validated by the Microbiology Laboratory at [facility]. This source has not been approved by the U.S. Food and Drug Administration. The results are not intended to be used as the sole means for clinical diagnosis or patient management. The Microbiology Laboratory is authorized under the clinical Laboratory Improvement Amendments of 1988 (CLIA-88) to perform high complexity testing. Urine culture Klebsiella aerogenes GALEANO isolate 10-4 cfu/ml DENOMINATIONAL The performance HOSPITAL characteristics of this assay on this isolate were validated by the Microbiology Laboratory at [facility].This source has not been approved by [...] were validated by the Microbiology Laboratory at [facility].This source has not been approved by [...] were validated by the Microbiology Laboratory at [facility]. This source has not been approved [...] were validated by the Microbiology Laboratory at [facility]. This source has not been approved [...] EKTA <=0.125 mcg/mL: Susceptible Escherichia coli Tigecycline EKTA <=0.5 mcg/mL: Susceptible Escherichia coli Ampicillin EKTA [...] mcg/mL: Susceptible Klebsiella aerogenes Performing Organization Address City/[facility] Phone Number [facility] DEPARTMENT OF [address] [place] [address] PATHOLOGY AND GENOMIC MEDICINE [address] * ECG Pre/Post Op (05/24/2019 2:03 PM CDT) Ventricular 73 [facility] MUSE rate Atrial rate 73 [facility] MUSE AL interval 148 [facility] QRSD interval 144 [facility] M[facility] QT interval 454 [facility] M[facility] QTC interval 500 [facility] P axis 1 57 [facility] MUSE QRS axis 1 60 [facility] MUSE T wave axis 50 [facility] MUSE EKG impression Normal sinus rhythm-Left [facility] MUSE bundle branch block-Abnormal ECG-No previous ECGs available- Specimen Narrative Performed At Performing Organization Address [facility] Phone Number [facility] [address] [place] [address] * Urinalysis screen and microscopy, with reflex to culture (05/24/2019 1:49 PM CDT) Specimen site Clean catch [facility] Color, UA Yellow [facility] Appearance, UA Hazy [facility] Specific 1.015 1.001 - 1.035 [facility] gravity, UA [facility] pH, UA 5.0 5.0 - 8.5 [facility] Protein, UA 2+ (A) Negative [facility] Glucose, UA Negative Negative [facility] Ketones, UA Negative Negative [facility] Bilirubin, UA Negative Negative [facility] Blood, UA Negative Negative [facility] Nitrite, UA Negative Negative [facility] Urobilinogen, <2.0 <2.0 [facility] Leukocyte Negative Negative [facility] esterase, [facility] Epithelial 1 /HPF [facility] cells, [facility] WBC, UA 6 (H) 0 - 4 /HPF [facility] RBC, UA 1 0 - 5 /HPF [facility] Bacteria, UA Few None seen [facility] Yeast, UA None seen [facility] Yeast with None seen [facility] Hyaline casts, 12 /LPF [facility] Specimen Urine Performing Organization Address City/[facility] Phone Number [facility] [place] [place] [address] PATHOLOGY AND GENOMIC MEDICINE [address] * Estimated GFR (05/24/2019 1:49 PM CDT) [facility] Estimated GFR 34 (A) mL/min/1.73 m2 [facility] Comment: [facility] rpretation G1 >=90 Normal or high G2 60-89Mildly decreased [id number] Mildly to moderately decreased [id number] Moderately to severely decreased G4 15-29Severely decreased G5 <15Kidney failure The eGFR was calculated using the Chronic Kidney Disease Epidemiology Collaboration (CKD-EPI) equation. Interpretation is based on recommendations of the National Kidney Foundation-Kidney Disease Outcomes Quality Initiative (NKF-KDOQI) published in 2014. Specimen Plasma specimen Performing Organization Address City/[facility] Phone Number [facility] [place] [place] [address] PATHOLOGY AND GENOMIC MEDICINE [address] * Partial thromboplastin time, activated (05/24/2019 1:49 PM CDT) [facility] PTT 31.6 23.0 - 36.0 sec [facility] Comment: DENOMINATIONAL PTT therapeutic range for HOSPITAL unfractionated heparin is 61.0-112.0 seconds which corresponds to Anti-Xa 0.3-0.7 U/ml. Specimen Blood Performing Organization Address City/State/Zipcode Phone Number [facility] DEPARTMENT OF [address] [place] [phone] PATHOLOGY AND GENOMIC MEDICINE [address] * Prothrombin time with INR (05/24/2019 1:49 PM CDT) [facility] Prothrombin 13.3 11.5 - 14.5 sec [facility] INR 1.0 [facility] Comment: [facility] International Normalized HOSPITAL Ratio (INR) is a therapeutic monitoring tool for patients who are stable on oral anticoagulant therapy. An INR of 2.0-3.0 is suggested for deep vein thrombosis/pulmonary embolism. Specimen Blood Performing Organization Address City/[facility]/Zipcode Phone Number [facility] [place] [address] PATHOLOGY AND GENOMIC MEDICINE [address] * CBC hemogram (05/24/2019 1:49 PM CDT) [facility] WBC 10.07 4.50 - 11.00 k/uL [facility] RBC 4.14 (L) 4.20 - 5.50 m/uL [facility] HGB 11.0 (L) 12.0 - 16.0 g/dL [facility] HCT 36.8 (L) 37.0 - 47.0 % [facility] MCV 88.9 82.0 - 100.0 fL [facility] MCH 26.6 (L) 27.0 - 34.0 pg [facility] MCHC 29.9 (L) 31.0 - 37.0 g/dL [facility] RDW - SD 47.5 37.0 - 55.0 fL [facility] MPV 11.0 8.8 - 13.2 fL [facility] Platelet count 364 150 - 400 k/uL [facility] Nucleated RBC 0.00 /100 WBC [facility] Specimen Blood Performing Organization Address City/State/Zipcode Phone Number [facility] DEPARTMENT OF [address] [place] [address] PATHOLOGY AND GENOMIC MEDICINE [address] * Comprehensive metabolic panel (05/24/2019 1:49 PM CDT) Only the most recent of 3 results within the time period is included. [facility] Sodium 144 135 - 148 mEq/L [facility] Potassium 4.1 3.5 - 5.0 mEq/L [facility] Chloride 105 98 - 112 mEq/L [facility] CO2 25 24 - 31 mEq/L [facility] Anion gap 14@ANIO 7 - 15 mEq/L [facility] BUN 17 8 - 23 mg/dL [facility] Creatinine 1.46 (H) 0.50 - 0.90 mg/dL [facility] Glucose 106 (H) 65 - 99 mg/dL [facility] Calcium 9.9 8.8 - 10.2 mg/dL [facility] Protein 8.2 6.3 - 8.3 g/dL [facility] Comment: [facility] 4.6-7.0 g/dL 1 week 4.4-7.6 g/dL 7 months-1year 5.1-7.3 g/dL 1-2 years5.6-7 .5 g/dL >3 years6.0-8 .0 g/dL 18-150 6.3-8.3 g/dL Albumin 3.5 3.5 - 5.0 g/dL [facility] A/G ratio 0.7 0.7 - 3.8 [facility] Alkaline 97 35 - 104 U/L [facility] phosphatase [facility] AST 19 10 - 35 U/L [facility] ALT 23 5 - 50 U/L [facility] Total bilirubin 0.3 0.0 - 1.2 mg/dL [facility] Specimen Plasma specimen Performing Organization Address City/[facility]/Zipcode Phone Number [facility] [place] [place] [address] PATHOLOGY AND GENOMIC MEDICINE [address] * FL URETHROGRAM URO (05/01/2019 4:33 PM CDT) * [employer] (05/01/2019 4:09 PM CDT) Specimen Narrative Performed At Performing Organization Address City/[facility] Phone Number AMBER * POC BLADDER SCAN/PVR [...] lung base medially.Lung quiles are otherwise clear. [id number] Procedure Note Hm Interface, Radiology Results Incoming - 02/28/2019 4:47 PM CDT EXAMINATION: XR CHEST 2 VW CLINICAL HISTORY: R05 Cough, Chronic cough of 3 months COMPARISON: None IMPRESSION: Heart size is within the upper limits of normal. Pulmonary vessels are in the normal range. There is patchy atelectasis at the right lung base medially. Lung quiles are otherwise clear. [facility]-[id number] Performing Organization Address City/[facility]/Zipcode Phone Number [facility] [address] [place] [address] * Urinalysis, automated with microscopy (02/28/2019 3:55 PM CDT) Only the most recent of 2 results within the time period is included. Color, UA YELLOW YELLOW [facility] [place] Appearance CLEAR CLEAR [facility] [place] Specific 1.014 1.001 - 1.035 [facility] gravity, urine [facility]AGNOSTICS [place] pH, urine 5.5 5.0 - 8.0 [facility] [place] Glucose, urine NEGATIVE NEGATIVE [facility] [place] Bilirubin, UA NEGATIVE NEGATIVE [facility] [place] Ketones, UA NEGATIVE NEGATIVE [facility] [place] Occult blood, NEGATIVE NEGATIVE [facility] [place] Protein, UA 1+ (A) NEGATIVE [facility] [place] Nitrite, UA NEGATIVE NEGATIVE [facility] [place] Leukocyte 2+ (A) NEGATIVE [facility] esterase, UA [facility] [place] WBC, UA > OR=60 (A) < OR=5 /HPF [facility] [place] RBC, UA NONE SEEN < OR=2 /HPF [facility] [place] Squamous NONE SEEN < OR=5 /HPF [facility] epithelial DIAGNOSTICS cells, UA [facility] Bacteria, UA NONE SEEN NONE SEEN /HPF [facility] [place] Hyaline casts, NONE SEEN NONE SEEN /LPF [facility] UA [facility] [place] Specimen Urine Resulting Agency Comment Performing Organization Information: Site ID: [id number] Name: [facility] Address: [address] [place] [address] Director: Stephanie Sellers Performing Organization Address City/State/Zipcode Phone Number [employer] [place] [address] [place] [address] * CBC with platelet and differential (02/28/2019 3:55 PM CDT) Only the most recent of 2 results within the time period is included. [facility] WBC 9.0 3.8 - 10.8 [facility] Thousand/uL [facility] RBC 4.30 3.80 - 5.10 [facility] Million/uL [facility] [place] HGB 11.5 (L) 11.7 - 15.5 g/dL [employer] [facility] HCT 36.1 35.0 - 45.0 % [employer] [facility] [place] MCV 84.0 80.0 - 100.0 fL [employer] [facility] [place] MCH 26.7 (L) 27.0 - 33.0 pg [employer] [facility] [place] MCHC 31.9 (L) 32.0 - 36.0 g/dL [employer] [facility] [place] RDW 14.0 11.0 - 15.0 % [employer] [facility] Platelet count 319 140 - 400 [facility] Thousand/uL [facility] MPV 11.8 7.5 - 12.5 fL [facility] [place] Neutrophils, 5,553 1,500 - 7,800 [facility] absolute cells/uL [facility] [place] Lymphocytes, 2,538 850 - 3,900 cells/uL [facility] [place] Monocytes, 648 200 - 950 cells/uL [facility] [place] Eosinophils, 198 15 - 500 cells/uL [facility] [place] Basophils, 63 0 - 200 cells/uL [facility] absolute [facility] [place] Neutrophils 61.7 % [employer] [facility] Lymphocytes 28.2 % [facility] Monocytes 7.2 % [facility] Eosinophils 2.2 % [facility] Basophils + RC 0.7 % [facility] Specimen Blood Resulting Agency Comment Performing Organization Information: Site ID: [id number] Name: [facility] Address: [address] [place] [id number] Director: Stephanie Sellers Performing Organization Address City/State/Zipcode Phone Number [employer]) [address] [address] * Lipid panel (01/14/2019 2:07 PM CDT) [facility] Cholesterol, 181 <200 mg/dL [facility] total [facility] [place] HDL cholesterol 61 >50 mg/dL [employer] [facility] Triglycerides 110 <150 mg/dL [employer] [facility] [place] LDL cholesterol 99 mg/dL (calc) [facility] calculated Comment: DIAGNOSTICS Reference range: <100 [place] Desirable range <100 mg/dL for primary prevention; <70 mg/dL for patients with CHD or diabetic patients with > or=2 CHD risk factors. LDL-C is now calculated using the Jackie calculation, which is a validated novel method providing better accuracy than the Friedewald equation in the estimation of LDL-C. Huey SIMENTAL et al. NICK. 2013;310(19): 8467-6098 (http://education.[employer].Hispanic Media/faq/NAS925) Cholesterol/HDL 3.0 <5.0 (calc) [employer] [place] Non-HDL 120 <130 mg/dL (calc) [facility] cholesterol Comment: DIAGNOSTICS For patients with diabetes [facility] plus 1 major ASCVD risk factor, treating to a non-HDL-C goal of <100 mg/dL (LDL-C of <70 mg/dL) is considered a therapeutic option. Specimen Blood Resulting Agency Comment Performing Organization Information: Site ID: [id number] Name: [facility] Address: [address] [place] [phone] Director: Stephanie Sellers Performing Organization Address City/[facility] Phone Number [employer] [place] [phone] * XR Knee 4+ Vw Right (12/12/2018 [...] There is probable artifact/overlying the mid thigh. *[id number] Procedure Note Interface, Radiology Results Incoming - [...] There is probable artifact/overlying the mid thigh. *[id number] Performing Organization Address City/State/Zipcode Phone Number [facility] [address] [place] [address] after 05/29/2018 Insurance Type Payer Benefit Subscriber ID Effective Phone Address Plan / Dates Group O [facility] MEDICARE AARP xxxxxxxxx [id number] MEDICARE resent [facility] Advance Directives For more information, please contact: [phone] [employer] Controls Engineer Explanation Type Date Recorded Advance Directives, Living Will and Medical Power of Surgery Specialist
--- NOTE | 2019-05-30 17:30 | NUR ---
pt with food from out side of facility. family at bedside. no gross issues or need
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
[2019-05-30 19:00] VITALS: BP 124/53
[2019-05-30 19:30] VITALS: BP_SYST 124; BP_SYST 127; BP_DIAS 53; BP_DIAS 60
--- NOTE | 2019-05-30 19:30 | NUR ---
patient received to room 299 via stretcher from the rn lab. vss. no c/o pain noted. admit assessment/history complete. patient instructed to call for assistance when needed.
[2019-05-30 20:16] VITALS: BP 127/60
[2019-05-30] MEDS ORDERED: ALBUTEROL/IPRATROPIUM 3 ML NEB NEB PRN (21:00)
[2019-05-30] MEDS ORDERED: HYDROCODONE/APAP 5MG-325MG TAB PO PRN (21:00)
[2019-05-30] MEDS ORDERED: ACETAMINOPHEN 325 MG TAB PO PRN (21:00)
[2019-05-30] MEDS ORDERED: ONDANSETRON HCL INJ 2MG/ML 2ML 2 MG/ML VIAL IV PRN (21:00)
[2019-05-30] MEDS: SODIUM CHLORIDE 0.9% 1000ML 1,000 ML IV SCH (21:00)
--- NOTE | 2019-05-30 22:24 | Diagnostic Imaging Report ---
EXAMINATION: CHEST 2 VIEWS INDICATION: ^wheezing ^[id number] ^[id number] COMPARISON: 03/21/2019 FINDINGS: PA and lateral views TUBES and LINES: None. LUNGS: Lungs are well inflated. Central peribronchial cuffing. PLEURA: No pleural effusion or pneumothorax. HEART AND MEDIASTINUM: The cardiomediastinal silhouette is unremarkable. BONES AND SOFT TISSUES: No acute osseous lesion. Unchanged right axillary surgical clips. UPPER ABDOMEN: No free air under the diaphragm. IMPRESSION: Central peribronchial cuffing. No definite focal consolidation. Signed by: Dr. John Milian MD on 05/30/2019 10:21 PM
[2019-05-31] VITALS: BP 144/70
[2019-05-31 04:00] VITALS: BP 143/67
--- NOTE | 2019-05-31 05:00 | NUR ---
patient oob to shower with assistance. patient to remain npo per orders. patint verbalizes understanding of this. ivf continue to infuse without difficulty.
[2019-05-31 06:21] LABS: BASOPHILS % 0.3 % (0.0-1.0); EOSINOPHILS # (AUTO) 0.1 (0.0-0.4); EOSINOPHILS % 0.6 % (0.0-6.0); HEMATOCRIT 31.6 % (34.2-44.1); HEMOGLOBIN 9.9 g/dL (12.0-16.0); LYMPHOCYTES # (AUTO) 3.4 (1.0-3.2); LYMPHOCYTES % 33.7 % (18.0-39.1); MEAN CORPUSCULAR HEMOGLOBIN 27.3 pg (28-32); MEAN CORPUSCULAR HGB CONC 31.3 g/dL (31-35); MEAN CORPUSCULAR VOLUME 87.3 fL (81-99); MONOCYTES # (AUTO) 0.8 (0.2-0.8); MONOCYTES % 8.1 % (4.4-11.3); NEUTROPHILS # (AUTO) 5.8 (2.1-6.9); NEUTROPHILS % 56.8 % (38.7-80.0); PLATELET COUNT 298 x10e3/uL (140-360); RED BLOOD COUNT 3.62 x10e6/uL (3.6-5.1); RED CELL DISTRIBUTION WIDTH 14.7 % (11.7-14.4)
[2019-05-31 06:44] LABS: ANION GAP 10.8 mmol/L (8-16); CALCIUM 9.1 mg/dL (8.4-10.2); CREATININE, SERUM 1.72 mg/dL (0.57-1.11); POTASSIUM 3.8 mmol/L (3.5-5.1)
[2019-05-31] MEDS ORDERED: PANTOPRAZOLE SOD 40 MG TABEC PO SCH (07:30)
[2019-05-31 08:04] VITALS: BP 144/60
--- NOTE | 2019-05-31 08:29 | NUR ---
Dr. Herrera called to request the creatinine results for this a m and was given this information. He requested that the research lab assistant be advised that he wishes to add this pt. post his current scheduled pt. I spoke with research lab assistant and was advised that there are 10 cases and they can't accommodate. The was called and message left with Milena.
[2019-05-31] MEDS ORDERED: CARVEDILOL 3.125 MG TAB PO SCH (09:00)
[2019-05-31] MEDS ORDERED: ASPIRIN 81 MG CHEW TAB PO SCH (09:00)
[2019-05-31] MEDS ORDERED: FLUTICASONE PROPIONATE NASAL SPRAY NS SCH (09:00)
[2019-05-31] MEDS: SODIUM CHLORIDE 0.9% 1000ML 1,000 ML IV SCH (10:20)
[2019-05-31 10:30] VITALS: BP 144/60
[2019-05-31 12:07] VITALS: BP 134/62
--- NOTE | 2019-05-31 13:50 | NUR ---
ORDER RECEIVED FOR THE PT TO DC HOME TODAY. CALL TO SHAKEEL FOR OBSERVATION ORDER. SHAKEEL DEFERRED TO DR. CASON. STATES TO CHANGE ADMITTING TO DAHU. CALL TO KAMLA. OK TO CHANGE PT TO OBS. MET W THE PT AND DTR AT THE BEDSIDE. DISCUSSED VELIZ. PT STATES SHE PAIN $100 COPAY ALREADY AND OWED $100. PT STATES SHE WAS SCHEDULED FOR THE HEART CATH ALREADY, BUT WAS PUT ON HOLD. ENCOURAGED IF SHE HAD ANY COPAY QUESTIONS TO CONTACT HER INSURANCE PROVIDER. VERBALIZED UNDERSTANDING. VELIZ WAS SIGNED. COPY TO PT AND COPY TO CHART.
--- NOTE | 2019-05-31 16:29 | NUR ---
The pt. has received discharge instructions and iv removed prior to discharge home. She is to follow up int the dr's office on Mon or Mon for rescheduling of angiograms.
--- NOTE | 2019-05-31 21:13 | Progress Note ---
DATE: 05/31/2019 Cardiology Progress Note SUBJECTIVE: Denies any chest pain or shortness of breath today. OBJECTIVE: VITAL SIGNS: Temperature 96.4, heart rate 75, blood pressure 144/60, respiratory rate 18, O2 saturation 100%, BMI 50. GENERAL: No acute distress. Alert. NECK: No JVD. CHEST: Clear to auscultation. CARDIOVASCULAR: Regular rate and rhythm. Normal S1, S2. ABDOMEN: Soft. EXTREMITIES: No edema. CARDIOVASCULAR MEDICATIONS: Reviewed, 1. Normal saline at 75 mL an hour. 2. Aspirin 81 mg daily. 3. Carvedilol 3.125 mg every 12 hours. STUDIES: Reviewed. Sodium 134, potassium 3.8, chloride 106, bicarbonate 21, BUN 34, creatinine 1.72, glucose 96. White blood cells 10, hemoglobin 9.9, platelets 298. INR 0.9. AST 20, ALT 22, total bilirubin 0.3, alkaline phosphatase 80. ASSESSMENT: A 78-year-old woman presents with: 1. Dyspnea on exertion for elective coronary angiography, found to have significant elevation in creatinine, also anemic. Her creatinine seems to be still elevated. crown and bridge dental lab technician availability for today is discussed with the patient. She prefers to reschedule and be discharged today. We will recheck clinical assessment in the office and advice later this week in order to further reschedule. We will need rechecking kidney function. MD ELVI Bobo/MYA /[id number]
--- NOTE | 2019-05-31 23:28 | History and Physical ---
She was seen and evaluated on 05/30/2019, but late dictation entry due to the fact at that time, we did not have a medical record number noted for us to admit the patient, but the patient was seen and evaluated in the manufacturing lab technician. CHIEF COMPLAINT: Elevated creatinine, scheduled for left heart catheterization. HISTORY OF PRESENT ILLNESS: This is a 78-year-old female, who essentially has history of hypertension and chronic urinary tract infections, who apparently has been complaining of shortness of breath and was scheduled to have a left heart catheterization as an outpatient by Cardiology and it was canceled due to elevated creatinine levels. Apparently, the patient was recently taking Bactrim for underlying urinary tract infection as well as steroids for underlying wheezing. Due to the fact that the creatinine was found to be 1.8, a left heart catheterization was aborted. Later in the day, we realized that the patient was taking Bactrim when we reviewed her medications. She reports she has chronic urinary tract infections and was scheduled to have Bactrim for 10 total days by her PCP. She is also scheduled to have some sort of bladder suspension sometime in the next 1-2 weeks' time. The patient denies any chest pain, palpitation, nausea, vomiting. The patient is seen and evaluated at bedside on the medical floor. She is currently doing well with no other issues at this time. REVIEW OF SYSTEMS: Shortness of breath and occasional lower extremity edema. Pertinent negatives: Denies any chest pain, palpitation, nausea, vomiting, diarrhea, dysuria, hematuria, frequency, urgency, lightheadedness, dizziness, abdominal pain, headaches, shortness of breath, cough, congestion, fever, or any other complaints. The rest of 14-point review of systems have been reviewed with the patient and are negative. ALLERGIES: NO KNOWN DRUG ALLERGIES. HOME MEDICATIONS: Aspirin 81 mg daily, Coreg, fluticasone, omeprazole, and Bactrim. PAST MEDICAL HISTORY: Hypertension and acid reflux. PAST SURGICAL HISTORY: Reports none. FAMILY HISTORY: Hypertension and diabetes. SOCIAL HISTORY: No drugs. No alcohol. Does not smoke. Good social support. PHYSICAL EXAMINATION: VITAL SIGNS: Temperature is 96.5, pulse 55, respiratory rate is 18, blood pressure is 134/62, and pulse ox 97% on room air. GENERAL: Not in acute distress. Alert and oriented x3. Cooperative on examination. HEENT: Head normocephalic and atraumatic. Eyes; pupils are equal, round, and reactive to light bilaterally. Extraocular movements are intact bilaterally. NECK: Supple. Good range of motion. Throat; no evidence of erythema or exudates in the posterior pharynx. Has poor dentition. PULMONARY: Clear to auscultation bilaterally. No wheezing, rales, or rhonchi. No crackles appreciated. CARDIOVASCULAR: Positive S1, S2. No murmurs, rubs, or gallops appreciated. ABDOMEN: Soft, nondistended, and nontender to palpation. Bowel sounds present. MUSCULOSKELETAL: Strength is 5/5 throughout. No evidence of any muscle deficits on examination. No weakness appreciated. NEUROLOGIC: Cranial nerves 2 through 12 grossly intact. No evidence of any neurological deficits on exam. SKIN: Intact. Warm to touch. Good cap refill. PSYCHIATRIC: Normal affect and mood. EXTREMITIES: No edema. Good range of motion throughout. LAB FINDINGS: Show white count was 10.2, hemoglobin 9.9, hematocrit is 32, and platelets of 298. Coagulation: PT 12, INR 0.92, PTT 28. Chemistry: Sodium 134, potassium 3.8, chloride 106, bicarb 21, anion gap of 10, BUN is 34, creatinine was 1.87 and now 1.72, and calcium 9.1. LFTs within normal range. Albumin was 3.2 and LDL was 129. IMAGING STUDIES: Chest x-ray shows central peribronchial cuffing. No definitive focal consolidation. IMPRESSION: 1. Lower extremity edema needing ischemic workup, scheduled for left heart catheterization due to elevated creatinine. 2. Acute kidney injury found to be secondary to underlying Bactrim, unknown baseline creatinine. 3. Hypertension. 4. Chronic urinary tract infections. PLAN: At this time, I would like to hold the Bactrim as this is likely the contributing cause of her underlying elevated creatinine level. I do not have any of her new urine cultures for me to change antibiotic nor does the patient know exactly which urinary tract infection she has. She will be n.p.o. after midnight. We are going to schedule for hopefully the left heart catheterization tomorrow by Cardiology. I am going to resume same home medications with no changes. Acute IV fluids for now for hydration. Chest x-ray was ordered, which shows central peribronchial cuffing. No definitive consolidation. We are going to continue same plan of care and monitor closely and once she is evaluated, possibly discharge tomorrow. MD BRANT Padilla/MYA /[id number]
--- NOTE | 2019-06-01 07:16 | Discharge Summary ---
FINAL DISCHARGE DIAGNOSES: 1. Left heart catheterization will be deferred until next week due to the lab animal technician being very busy. 2. Acute kidney injury secondary to underlying Bactrim, unknown baseline kidney function. 3. Urinary tract infections. 4. Left bundle-branch block. 5. History of congestive heart failure with systolic dysfunction. CONSULTANTS: Cardiology. PHYSICAL EXAMINATION: VITAL SIGNS: Temperature is 96.5, pulse 55, respirations 18, blood pressure 134/62, pulse ox 97% on room air. LABORATORY DATA: Lab show white count is 10.2, hemoglobin 9.9, hematocrit is 32, and platelets of 298. Coagulation; PT 12, INR 0.92, PTT 28. Chemistry; sodium 134, potassium 3.8, chloride 106, bicarb 21, anion gap of 10, BUN is 34, creatinine is 1.72, glucose is 96, calcium is 9.1. Her albumin was 3.2, LDL was 129. MICROBIOLOGY: None. IMAGING STUDIES: Chest x-ray shows central peribronchial cuffing. No definitive focal consolidation. HOSPITAL COURSE: This is a 78-year-old female, who came in for an elective left heart catheterization due to complaints of underlying shortness of breath and concerns for underlying heart failure. The patient was seen and evaluated on the heart catheterization table and was scheduled to be admitted. During my evaluation, she was alert and oriented x4. There was no complaints of any shortness of breath. The patient reports she is currently on Bactrim for her underlying UTI as well as oral prednisone for underlying wheezing. After further review, the patient was admitted under observation and further labs were ordered. Her creatinine here was still found to be slightly elevated and it is presumed to be from underlying Bactrim usage. On discharge, creatinine was 1.72. The patient maintained on IV fluid hydration while here overnight. The patient was in the process of getting a left heart catheterization, but the schedule was full and it was actually canceled until next Monday as an outpatient. At this time, I recommended for the patient to continue with same medications with no changes. I do not have the urine cultures from her urologist and since she was started with Bactrim by her urologist, I recommended continue with that medications. I also do not know the patient's baseline creatinine as well, as the only records I have was back in March and her creatinine was around 1.4. At this time, the patient was cleared for discharge by Cardiology. On the day of discharge, vital signs were stable, labs reviewed and stable. The patient is seen and evaluated, and examined thoroughly on the day of discharge. No other complaints. The patient verbalized understanding and agrees to plan of care to follow up accordingly as an outpatient with the primary care physician in 1 week and the executive sous chef next Monday for an elective left heart catheterization. MEDICATIONS: See med reconciliation form. DISPOSITION: To home. CONDITION: Stable. DIET: Heart healthy. If there are any worsening symptoms, the patient was advised to come back to the ED for further evaluation. Discharge summary took greater than 35 minutes. MD BRANT Padilla/MYA /[id number]
== END 2019-05-31 16:30 | disposition home or self-care (01) ==
LOC: CATH LAB 12:30 → PACU V 17:16 → INTOOBSV 17:16 → MED/SURG3 19:04
PROVIDERS: ADMIT Internal Medicine Cardiovascular Disease; ATTEND Internal Medicine
DX: N17.9 Acute kidney failure, unspecified (principal); N39.0 Urinary tract infection, site not specified; T36.8X5A Adverse effect of other systemic antibiotics, initial encounter; E66.9 Obesity, unspecified; E87.2 Acidosis; I11.0 Hypertensive heart disease with heart failure; I50.23 Acute on chronic systolic (congestive) heart failure; I44.7 Left bundle-branch block, unspecified; D64.9 Anemia, unspecified; Z68.43 Body mass index [BMI] 50.0-59.9, adult
CPT/HCPCS: 36415 ×3; 71046; 80048; 80053 ×2; 80061; 83036; 85025 ×2; 85610; 85730; 93005; 94640; G0378 ×2; J1644; J7030; S0164; J2001; J2250; J3010; Q9967

== ENCOUNTER → 2020-08-07 | Outpatient (CLI) | payer MEDICARE, OTHER | LOC: RAD 14:17 | PROVIDERS: ATTEND Internal Medicine | DX: M79.89 Other specified soft tissue disorders (principal) | CPT/HCPCS: 93971 ==

== ENCOUNTER → 2021-01-21 | Outpatient (CLI) | payer MEDICARE, OTHER ==
[~2021-01-21] MED LIST changes: +REGADENOSON 0.4 MG/5 ML SYR IV ONE
== END ==
LOC: NM 09:37
PROVIDERS: ATTEND Internal Medicine Interventional Cardiology
DX: I20.9 Angina pectoris, unspecified (principal); I44.7 Left bundle-branch block, unspecified
CPT/HCPCS: 78452; 93017; A9502; J2785

== ENCOUNTER → 2021-04-20 | Day surgery (SDC) | payer MEDICARE ==
[2021-04-15 15:18] LABS: BASOPHILS % 0.5 % (0.0-1.0); EOSINOPHILS # (AUTO) 0.1 (0.0-0.4); EOSINOPHILS % 1.8 % (0.0-6.0); HEMATOCRIT 31.2 % (34.2-44.1); HEMOGLOBIN 9.2 g/dL (12.0-16.0); LYMPHOCYTES # (AUTO) 1.8 (1.0-3.2); LYMPHOCYTES % 22.2 % (18.0-39.1); MEAN CORPUSCULAR HEMOGLOBIN 27.7 pg (28-32); MEAN CORPUSCULAR HGB CONC 29.5 g/dL (31-35); MONOCYTES # (AUTO) 0.6 (0.2-0.8); NEUTROPHILS # (AUTO) 5.4 (2.1-6.9); NEUTROPHILS % 67.2 % (38.7-80.0); PLATELET COUNT 256 x10e3/uL (140-360); RED BLOOD COUNT 3.32 x10e6/uL (3.6-5.1); RED CELL DISTRIBUTION WIDTH 16.9 % (11.7-14.4)
[2021-04-15 15:42] LABS: ALBUMIN 3.2 g/dL (3.5-5.0); ALBUMIN/GLOBULIN RATIO 0.8 (0.8-2.0); ANION GAP 15.9 mmol/L (8-16); CALCIUM 9.1 mg/dL (8.4-10.2); CREATININE, SERUM 2.19 mg/dL (0.57-1.11)
[2021-04-15 15:44] LABS: POTASSIUM 5.9 mmol/L (3.5-5.1)
[2021-04-20] VITALS (10 sets, daily range): BP systolic 94–152; BP diastolic 50–80
[~2021-04-20] VITALS: Ht 142.2 cm; Wt 91.6 kg
[~2021-04-20] MED LIST changes: +ALLOPURINOL300 MG PO; +ALPRAZOLAM 0.5 MG TAB ONE; +DIPHENHYDRAMINE HCL 25 MG CAP ONE; +FENTANYL CITRATE/PF 100MCG/2 ML INJ ONE; +FEROSUL325 MG PO; +FUROSEMIDE40 MG PO; +HEPARIN SOD/SOD CHLORIDE 2,000 ML ONE; +IOPAMIDOL 370 MG/ML 200 ML INFUS..BTL INJ ONE; +LIDOCAINE HCL 2% LOCAL 20 ML VIAL ONE; +MIDAZOLAM HCL 2 MG/2 ML VIAL ONE; +ONDANSETRON ODT4 MG PO; -REGADENOSON 0.4 MG/5 ML SYR IV ONE; +SODIUM CHLORIDE 0.9% 1000ML 1,000 ML ONE; +ZESTRIL2.5 MG PO; +ZYRTEC10 MG PO; +vitamin d PO
== END | disposition home or self-care (01) ==
LOC: CATH LAB 11:33
PROVIDERS: ATTEND Internal Medicine Interventional Cardiology
DX: I25.10 Atherosclerotic heart disease of native coronary artery without angina pectoris (principal); M19.90 Unspecified osteoarthritis, unspecified site; I44.7 Left bundle-branch block, unspecified; R01.1 Cardiac murmur, unspecified; Z01.812 Encounter for preprocedural laboratory examination; Z20.822 Contact with and (suspected) exposure to COVID-19
CPT/HCPCS: 36415; 76937; 80053; 83880; 85025; 93454; C1887; J2001; J2250; J3010; J7030; Q9967; U0002; 99152

== ENCOUNTER 2021-04-28 16:08 | Emergency (ER) | payer MEDICARE ==
[~2021-04-28] VITALS: Ht 142.2 cm; Wt 91.2 kg
[~2021-04-28 16:08] MED LIST changes: -ALPRAZOLAM 0.5 MG TAB ONE; -DIPHENHYDRAMINE HCL 25 MG CAP ONE; -FENTANYL CITRATE/PF 100MCG/2 ML INJ ONE; -HEPARIN SOD/SOD CHLORIDE 2,000 ML ONE; -IOPAMIDOL 370 MG/ML 200 ML INFUS..BTL INJ ONE; -LIDOCAINE HCL 2% LOCAL 20 ML VIAL ONE; -MIDAZOLAM HCL 2 MG/2 ML VIAL ONE; -ONDANSETRON ODT4 MG PO; -SODIUM CHLORIDE 0.9% 1000ML 1,000 ML ONE
[2021-04-28] MEDS ORDERED: ONDANSETRON ODT4 MG PO (17:35)
== END 2021-04-28 17:43 | disposition home or self-care (01) ==
LOC: FSED 16:23
DX: R06.02 Shortness of breath (principal); R11.2 Nausea with vomiting, unspecified; K52.9 Noninfective gastroenteritis and colitis, unspecified; R53.83 Other fatigue; I10 Essential (primary) hypertension; I50.9 Heart failure, unspecified; K21.9 Gastro-esophageal reflux disease without esophagitis
CPT/HCPCS: 36415; 71045; 80053; 81003; 82553; 83880; 84484; 85025; 99284

== ENCOUNTER 2022-06-24 18:09 | Emergency (ER) | payer MEDICARE ==
[~2022-06-24] VITALS: Ht 142.2 cm; Wt 85.3 kg
[~2022-06-24 18:09] MED LIST changes: +ONDANSETRON ODT4 MG PO
[2022-06-24] MEDS ORDERED: ALBUTEROL/IPRATROPIUM 3 ML NEB NEB ONE (19:00)
[2022-06-24] MEDS ORDERED: SODIUM CHLORIDE 0.9% 1000ML 1,000 ML IV SCH (19:00)
[2022-06-24] MEDS ORDERED: SODIUM CHLORIDE 0.9% 1000ML 1,000 ML ONE (19:52)
[2022-06-24] MEDS ORDERED: ALBUTEROL/IPRATROPIUM 3 ML NEB ONE (19:52)
[2022-06-24] MEDS ORDERED: ALBUTEROL2.5 MG/3 M INH (21:24)
[2022-06-24] MEDS ORDERED: PROVENTIL HFA6.7 GM INH (21:25)
[2022-06-24] MEDS ORDERED: PREDNISONE20 MG PO (21:26)
[2022-06-24] MEDS ORDERED: GUAIFEN-CODEINE5 ML PO (21:28)
[2022-06-24] MEDS ORDERED: PREDNISONE 20 MG TAB ONE (21:40)
[2022-06-24 21:42] VITALS: BP 158/60
[2022-06-24] MEDS ORDERED: PREDNISONE 20 MG TAB PO ONE (22:15)
== END 2022-06-24 21:42 | disposition home or self-care (01) ==
LOC: FSED 18:30
DX: R05.9 Cough, unspecified (principal); J20.9 Acute bronchitis, unspecified; I12.9 Hypertensive chronic kidney disease with stage 1 through stage 4 chronic kidney disease, or unspecified chronic kidney disease; N18.9 Chronic kidney disease, unspecified; R11.0 Nausea; I50.9 Heart failure, unspecified; K21.9 Gastro-esophageal reflux disease without esophagitis
CPT/HCPCS: 71046; 80053; 81003; 85025; 87400; 99284; J7030; J7512

== ENCOUNTER 2024-12-30 21:43 | Emergency (ER) | payer MEDICARE ==
[~2024-12-30] VITALS: Ht 144.8 cm; Wt 74.6 kg
[~2024-12-30 21:43] MED LIST changes: +ALBUTEROL2.5 MG/3 M INH; +ARICEPT10 MG PO; +BENICAR20 MG PO; +BENZONATATE100 MG PO; +CLOBETASOL PROP15 G1 TOP; +GUAIFEN-CODEINE5 ML PO; +HYDRALAZINE HCL10 MG PO; +LEVOFLOXACIN250 MG PO; +LORATADINE10 MG PO; +MACROBID 100 M100 MG PO; +OMEGA 3 1,0001 EACH PO; +PANTOPRAZOLE SO20 MG PO; +PREDNISONE20 MG PO; +PROVENTIL HFA6.7 GM INH; +SODIUM BICARBO650 MG PO; +TEMAZEPAM15 MG PO; +TYLENOL ARTHRITIS PO; +VITAMIN B-121000 MCG PO; +VITAMIN C500 M6
[2024-12-30 22:07] VITALS: PULSE 59; RESP 16; TEMP 97.6
[2024-12-30] MEDS: SODIUM CHLORIDE 0.9% 1000ML 1,000 ML IV ONE (23:31)
[2024-12-31 00:57] VITALS: BP 139/64; O2SAT 99
== END 2024-12-31 00:04 | disposition home or self-care (01) ==
LOC: FSED 21:58
DX: R53.1 Weakness (principal); N18.9 Chronic kidney disease, unspecified; D64.9 Anemia, unspecified; I10 Essential (primary) hypertension; I50.9 Heart failure, unspecified; E78.5 Hyperlipidemia, unspecified; I12.9 Hypertensive chronic kidney disease with stage 1 through stage 4 chronic kidney disease, or unspecified chronic kidney disease; F03.90 Unspecified dementia, unspecified severity, without behavioral disturbance, psychotic disturbance, mood disturbance, and anxiety; F41.9 Anxiety disorder, unspecified; K21.9 Gastro-esophageal reflux disease without esophagitis; M19.09 Primary osteoarthritis, other specified site; M10.9 Gout, unspecified
CPT/HCPCS: 80053; 81003; 85025; 99284; J7030

== ENCOUNTER 2025-02-15 21:06 | Emergency (ER) | payer MEDICARE ==
[~2025-02-15] VITALS: Ht 142.2 cm; Wt 76.2 kg
[2025-02-15] MEDS: SODIUM CHLORIDE 0.9% 1000ML 1,000 ML IV ONE (21:52)
[2025-02-15] MEDS: DIPHENHYDRAMINE HCL INJ 50 MG/ML VIAL IV ONE (21:52)
[2025-02-15] MEDS: FAMOTIDINE 20 MG/2 ML VIAL IV STA (21:53)
[2025-02-15] MEDS: DEXAMETHASONE SOD PHOS INJ 4 MG/ML SDV IV ONE (21:53)
[2025-02-15] MEDS ORDERED: BENADRYL25 M1 PO (23:07)
[2025-02-15] MEDS ORDERED: CETIRIZINE HCL10 MG PO (23:07)
[2025-02-15] MEDS ORDERED: PREDNISONE50 MG PO (23:07)
[2025-02-15 23:15] VITALS: PULSE 53; RESP 16; TEMP 98.4
[2025-02-15 23:26] VITALS: BP 125/61; O2SAT 100
== END 2025-02-15 23:25 | disposition home or self-care (01) ==
LOC: FSED 21:10
DX: L27.0 Generalized skin eruption due to drugs and medicaments taken internally (principal); I95.9 Hypotension, unspecified; I12.9 Hypertensive chronic kidney disease with stage 1 through stage 4 chronic kidney disease, or unspecified chronic kidney disease; N18.9 Chronic kidney disease, unspecified; E78.5 Hyperlipidemia, unspecified; F03.90 Unspecified dementia, unspecified severity, without behavioral disturbance, psychotic disturbance, mood disturbance, and anxiety; M10.9 Gout, unspecified; F41.9 Anxiety disorder, unspecified
CPT/HCPCS: 96374; 96375; 96376; 99283; J1100; J1200; J1308; J7030

== ENCOUNTER 2025-06-24 18:32 | Inpatient (IN) | payer MEDICARE ==
[~2025-06-24] VITALS: Ht 142.2 cm; Wt 76.7 kg
[~2025-06-24 18:32] MED LIST changes: +BENADRYL25 M1 PO; +CETIRIZINE HCL10 MG PO; +PREDNISONE50 MG PO
[2025-06-24 19:00] VITALS: PULSE 74; RESP 20; TEMP 98.5
[2025-06-24] MEDS: ONDANSETRON HCL INJ 2MG/ML 2ML 2 MG/ML VIAL IV STA (19:47)
[2025-06-24] MEDS ORDERED: IOPAMIDOL 370 MG/ML 100 ML INFUS..BTL INJ ONE (19:47)
[2025-06-24] MEDS: SODIUM CHLORIDE 0.9% 1000ML 1,000 ML IV ONE (19:47)
[2025-06-24] MEDS ORDERED: CEFTRIAXONE 1 GM VIAL IM ONE (22:00)
[2025-06-24] MEDS ORDERED: Morphine 4mg INJECTION 4 MG/ML INJ IV PRN (22:15)
[2025-06-24] MEDS: SOD POLYSTYRENE SULFONATE SUSP 15 GM/60 ML BTL PO ONE (22:49)
[2025-06-24] MEDS: CIPROFLOXACIN 400 MG/D5W 200ML 200 ML IV SCH (22:50)
[2025-06-24] MEDS: DEXTROSE 50% SYRINGE 50 ML IV STA (22:50)
[2025-06-24 23:42] VITALS: BP 136/56; PULSE 111; RESP 19; TEMP 99.3; O2SAT 100
[2025-06-25] VITALS (8 sets, daily range): BP systolic 99–116; BP diastolic 34–47; PULSE 55–82; RESP 16–18; TEMP 98.1–99.8; O2SAT 97–100
[2025-06-25] MEDS: INSULIN REGULAR, HUMAN 100 UNIT/1 ML SQ ONE (00:04)
[2025-06-25] MEDS: ACETAMINOPHEN 1000 MG/100 ML IV PRN (00:20)
[2025-06-25] MEDS: FUROSEMIDE INJ 10 MG/ML 4 ML VIAL IV ONE ×2 (00:22→00:40)
[2025-06-25] MEDS: SODIUM CHLORIDE 0.9% 1000ML 1,000 ML IV SCH (00:35)
[2025-06-25] MEDS: ONDANSETRON HCL INJ 2MG/ML 2ML 2 MG/ML VIAL IV PRN (00:40)
[2025-06-25] MEDS ORDERED: DOCUSATE SODIUM 100 MG CAP PO PRN (01:00)
[2025-06-25] MEDS ORDERED: SIMETHICONE 80 MG CHEW PO PRN (01:00)
[2025-06-25] MEDS ORDERED: DIPHENHYDRAMINE HCL 25 MG CAP PO PRN (01:00)
[2025-06-25] MEDS ORDERED: MELATONIN 5 MG TABLET PO PRN (01:00)
[2025-06-25] MEDS ORDERED: POLYETHYLENE GLYCOL 3350 17 GM PACK PO PRN (01:00)
[2025-06-25] MEDS ORDERED: DEXTROSE 50% SYRINGE 50 ML IV PRN (01:00)
[2025-06-25] MEDS ORDERED: BENZONATATE 100 MG CAP PO PRN (01:00)
[2025-06-25] MEDS ORDERED: ALBUTEROL/IPRATROPIUM 3 ML NEB NEB PRN (01:00)
[2025-06-25] MEDS: DEXTROSE 5%/0.9% SOD CHL 1,000 ML IV SCH (01:23)
[2025-06-25] MEDS ORDERED: LIDOCAINE 4% PATCH TP PRN (04:00)
[2025-06-25] MEDS: DEXTROSE 5%/0.9% SOD CHL 1,000 ML IV ONE (05:09)
[2025-06-25 05:33] LABS: BASOPHILS % 0.1 % (0.0-1.0); EOSINOPHILS % 0.1 % (0.0-6.0); LYMPHOCYTES % 2.8 % (18.0-39.1); MONOCYTES % 3.0 % (4.4-11.3); NEUTROPHILS % 93.0 % (38.7-80.0); RED CELL DISTRIBUTION WIDTH 14.9 % (11.7-14.4)
[2025-06-25 06:26] LABS: EST GLOMERULAR FILTRATION RATE 20.0 ML/MIN (>=60)
[2025-06-25 07:07] LABS: PHOSPHORUS 3.4 MG/DL (2.3-4.7)
[2025-06-25] MEDS ORDERED: ALLOPURINOL100 MG PO (07:21)
[2025-06-25] MEDS ORDERED: ZYRTEC10 MG (07:22)
[2025-06-25] MEDS ORDERED: vitamin b (07:24)
[2025-06-25] MEDS ORDERED: OMEGA-31000 MG PO (07:24)
[2025-06-25 08:13] LABS: CORONAVIRUS COVID-19 AG NEGATIVE (NEGATIVE)
[2025-06-25] MEDS: PANTOPRAZOLE SOD 40 MG TABEC PO SCH (09:45)
[2025-06-25 11:26] LABS: LYMPHOCYTES % (MANUAL) 4 % (19-48); MONOCYTES % (MANUAL) 1 % (3.4-9.0); NEUTROPHILS % (MANUAL) 95 % (40-74); PLATELET ESTIMATE ADEQUATE; PLATELET MORPHOLOGY COMMENT NORMAL; RBC MORPHOLOGY COMMENT NORMAL
[2025-06-25] MEDS: MIDODRINE HCL 5 MG TABLET PO SCH (12:44)
[2025-06-25] MEDS: ENOXAPARIN 30 MG/0.3 ML SYR SC SCH (16:38)
[2025-06-25] MEDS: SODIUM BICARBONATE 650 MG TAB PO SCH (16:38)
[2025-06-25] MEDS: DONEPEZIL HCL 5 MG TAB PO SCH (20:34)
[2025-06-25] MEDS: ACETAMINOPHEN 325 MG TAB PO PRN (20:35)
[2025-06-25] MEDS: TRAMADOL HCL 50 MG TAB PO PRN (23:23)
[2025-06-26] VITALS (10 sets, daily range): BP systolic 114–150; BP diastolic 34–57; PULSE 47–72; RESP 17–19; TEMP 97.6–98.2; O2SAT 96–100
[2025-06-26 05:38] LABS: BASOPHILS % 0.3 % (0.0-1.0); EOSINOPHILS % 0.4 % (0.0-6.0); LYMPHOCYTES % 8.3 % (18.0-39.1); MONOCYTES % 5.4 % (4.4-11.3); NEUTROPHILS % 84.9 % (38.7-80.0); RED CELL DISTRIBUTION WIDTH 14.9 % (11.7-14.4)
[2025-06-26 05:48] LABS: EST GLOMERULAR FILTRATION RATE 25.0 ML/MIN (>=60)
[2025-06-26 09:07] LABS: BAND NEUTROPHILS % (MANUAL) 2 %; EOSINOPHILS % (MANUAL) 2 % (0-7); LYMPHOCYTES % (MANUAL) 8 % (19-48); MONOCYTES % (MANUAL) 5 % (3.4-9.0); NEUTROPHILS % (MANUAL) 83 % (40-74); PLATELET ESTIMATE ADEQUATE; PLATELET MORPHOLOGY COMMENT NORMAL; RBC MORPHOLOGY COMMENT NORMAL
[2025-06-26] MEDS: ALLOPURINOL 100 MG TAB PO SCH (10:08)
[2025-06-26] MEDS: ASPIRIN 81 MG CHEW TAB PO SCH (10:08)
[2025-06-26] MEDS: TEMAZEPAM 7.5 MG CAP PO PRN (20:40)
[2025-06-27] VITALS (8 sets, daily range): BP systolic 141–162; BP diastolic 49–60; PULSE 46–74; RESP 17–20; TEMP 97.7–98.4; O2SAT 94–100
[2025-06-27 05:19] LABS: BASOPHILS % 0.2 % (0.0-1.0); EOSINOPHILS % 0.6 % (0.0-6.0); LYMPHOCYTES % 10.9 % (18.0-39.1); MONOCYTES % 5.3 % (4.4-11.3); NEUTROPHILS % 82.5 % (38.7-80.0); RED CELL DISTRIBUTION WIDTH 15.1 % (11.7-14.4)
[2025-06-27 05:56] LABS: EST GLOMERULAR FILTRATION RATE 32.0 ML/MIN (>=60)
[2025-06-27 06:19] LABS: CHOL/HDL RATIO 3.8 (3.0-3.6); LDL CHOLESTEROL 79.0 MG/DL (60-130)
[2025-06-27] MEDS: SODIUM BICARBONATE 650 MG TAB PO SCH (16:36)
[2025-06-28] VITALS (7 sets, daily range): BP systolic 161–176; BP diastolic 49–62; PULSE 42–65; RESP 18; TEMP 97.6–98.2; O2SAT 96–100
[2025-06-28 05:49] LABS: BASOPHILS % 0.4 % (0.0-1.0); EOSINOPHILS % 0.4 % (0.0-6.0); LYMPHOCYTES % 18.8 % (18.0-39.1); MONOCYTES % 5.5 % (4.4-11.3); NEUTROPHILS % 74.5 % (38.7-80.0); RED CELL DISTRIBUTION WIDTH 14.8 % (11.7-14.4)
[2025-06-28 06:52] LABS: EST GLOMERULAR FILTRATION RATE 40.0 ML/MIN (>=60)
[2025-06-28] MEDS: HYDRALAZINE HCL 20 MG/ML VIAL IV PRN (07:54)
[2025-06-28 14:19] LABS: % IRON SATURATION 30.0 % (15-50)
[2025-06-28] MEDS: FOSFOMYCIN TROMETHAMINE 3 GM PACKET PO ONE (15:14)
[2025-06-28] MEDS ORDERED: NORVASC10 MG PO (16:13)
[2025-06-28] MEDS ORDERED: SODIUM BICARBO650 MG PO (16:13)
[2025-06-28] MEDS: FUROSEMIDE 20 MG TAB PO ONE (16:17)
[2025-06-28] MEDS: AMLODIPINE BESYLATE 10 MG TAB PO ONE (16:17)
[2025-06-28] MEDS ORDERED: LASIX20 MG PO (16:18)
== END 2025-06-28 17:14 | disposition home or self-care (01) | DRG 872 ==
LOC: FSED 18:54 → ERHOLD 22:10 → MED/SURG 23:52
PROVIDERS: ADMIT Internal Medicine; ATTEND Internal Medicine
DX: A41.51 Sepsis due to Escherichia coli [E. coli] (principal); N39.0 Urinary tract infection, site not specified; N17.9 Acute kidney failure, unspecified; N18.4 Chronic kidney disease, stage 4 (severe); E87.20 Acidosis, unspecified; Z16.12 Extended spectrum beta lactamase (ESBL) resistance; E87.5 Hyperkalemia; I12.9 Hypertensive chronic kidney disease with stage 1 through stage 4 chronic kidney disease, or unspecified chronic kidney disease; I44.7 Left bundle-branch block, unspecified; A08.4 Viral intestinal infection, unspecified; R00.1 Bradycardia, unspecified; I95.9 Hypotension, unspecified; F03.A0 Unspecified dementia, mild, without behavioral disturbance, psychotic disturbance, mood disturbance, and anxiety; R74.01 Elevation of levels of liver transaminase levels; M51.369 Other intervertebral disc degeneration, lumbar region without mention of lumbar back pain or lower extremity pain; G89.29 Other chronic pain; K57.30 Diverticulosis of large intestine without perforation or abscess without bleeding; D64.9 Anemia, unspecified; M10.9 Gout, unspecified; Z11.52 Encounter for screening for COVID-19; Z60.2 Problems related to living alone; Z71.81 Spiritual or religious counseling; Z79.899 Other long term (current) drug therapy; Z79.82 Long term (current) use of aspirin
CPT/HCPCS: 36415; 71045; 74176; 76700; 80048; 80053; 80061; 80076; 81003; 82607; 82728; 82948; 83036; 83540; 83690; 83735; 84100; 84132; 84443; 84466; 85025; 85045; 87040; 87086; 87186; 93005; 94799; 96372; 96374; 99284; J0360; J1650; J1938; J2185; J2405; J2470; J7030; J7042; J7799; Q9967